=== PATIENT | female | born 1995 ===

== ENCOUNTER → 2022-12-02 08:30 | Outpatient (BNVA) | payer MEDICAID, SELFPAY | PROVIDERS: Visit Provider Physician Assistant ==

== ENCOUNTER → 2022-12-19 10:48 | Outpatient (BNVA) | payer OTHER, SELFPAY | PROVIDERS: Visit Provider Physician Assistant | DX: Z13.89 Encounter for screening for other disorder (principal) ==

== ENCOUNTER 2022-12-19 12:27 | Outpatient (REF) | payer OTHER, SELFPAY ==
[2022-12-21 14:08] LABS: H Pylori Breath Test Negative (Negative)
== END 2022-12-19 12:28 | disposition home or self-care (01) ==
LOC: HO.LNP 12:27
PROVIDERS: Visit Provider Physician Assistant
DX: Z01.818 Encounter for other preprocedural examination (principal); E66.01 Morbid (severe) obesity due to excess calories
CPT/HCPCS: 83013

== ENCOUNTER → 2024-01-06 13:58 | Outpatient (BNVA) | payer OTHER, SELFPAY | PROVIDERS: PCP Family Medicine; Visit Provider Physician Assistant Surgical ==

== ENCOUNTER 2024-03-01 07:59 | Outpatient (AMB) | payer OTHER, SELFPAY ==
--- NOTE | 2024-03-01 10:08 | A.OFFVIS_ITS ---
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: Details: Start time: 10.00am, End time: 10.38am ?I spent 33 minutes speaking with the patient on the phone plus an additional 5 minutes reviewing and updating records for a total of 38 minutes HPI Comments Details: Previous weight loss efforts: intermittent fasting, self diets Wakes up: 7am, Sleeps: 11pm Breakfast: skips Lunch: 11am (sandwich, grilled chicken with salad) Dinner: 5pm (chicken, rice, beans, salad), bowl cheerios Snacks: 9am (granola bar) Exercise: has a stationary bike Fluids: Coffee: none, tea: 3/month, soda: none, juice: none, ETOH: none PFSH Medical History (Updated 03/01/24 @ 10:12 by Pj Bowen MD) Anxiety Depression Back pain Surgical History Hx of section Family History Mother Depression Anxiety Bipolar 1 disorder Father Hypertension Sleep apnea Depression Son ADHD Daughter No problems noted. Social History Alcohol intake: never Patient Tobacco Use Status: Never used Tobacco Telehealth Telehealth Telehealth Platform: Telephone Location of provider rendering services: practice address Location of patient: address on file Patient Identification confirmed using: Name, : Yes Telehealth method: voice only Patient verbally consented to treatment: Yes Patient verbally consented to billing insurance company: Yes Patient informed of any privacy concerns related to visit: Yes Minutes spent on Phone/Video with Pt.: 38 Assessment & Plan Assessment & Plan (1) Morbid obesity: Code(s): E66.01 - Morbid (severe) obesity due to excess calories Category: Medical Plan: 1.? Plan for lap sleeve gastrectomy. If diaphragmatic or ventral hernias are present at time of surgery, these will be repaired laparoscopically as well. Risks and complications include possible conversion to an open procedure, anastomotic leak, bleeding requiring transfusion, small bowel obstruction, , DVT and pulmonary embolism, cardiac, or pulmonary complications, as custodial complications such as anastomotic ulcer, insufficient weight loss and vitamin deficiencies. I emphasized the importance of close follow-up, adherence to instructions and good communication. 2. Nutritional counseling. Start with 2 CELEBRATE REBUILD protein (buy at [facility] [employer] [facility]) shakes (ONE scoop EACH in 8oz low fat milk each) at 8am- 10am and 11am-1pm, 1 protein bar (CELEBRATE protein bars, buy at [facility]'s [employer]) at 2pm-4pm, dinner at 5pm (10 forks of protein and 10 forks of salad/vegetables), a protein bar after dinner at 7pm-9pm AND HALF protein bar at 10pm-11pm. So you do 2 protein shakes, 2.5 protein bars and one meal per day. Meal to include lean meat (beef, fish, pork, turkey, chicken), or albanian yogurt, or egg whites, or beans with a salad with olive oil and fruits (berries, pears, apples, kiwi). Avoid salt, breads, potatoes, rice, pasta, desserts. 3. Each shake would be drunk slowly, like coffee in a period of 2 hours. 4. Cut each bar in 4 pieces and eat each piece in 30min ?to make each bar last 2 hours. 5. I emphasized the importance of measuring accurately the food portion and measure it when serving the food in plate 6. The meal portions include 10 full-size forks of meat and 10 full-size forks of salad. You always eat the meat portion but you can replace up to 5 forks for salad/vegetables with rice, potatoes or pasta, or a fruit ?if you like. The less you do it the better weight loss will be. 7. One full-size fork is what it can be scooped on the fork without falling aside and not what can be bit with the fork. Use regular forks like those you find in a typical restaurant. 8.? Please send me weight measurements as soon as possible and then once a week. Always include your diet and exercise plan. 9. Start walking outside daily, tracking calories with a goal of 300 calories per day, daily. Goal is to burn 2000 calories per week on exercise, which means either 300 calories daily, or 400 calories 5 days per week, or 500 calories 4 days per week, or 650 calories 3 days per week. 10. The best choice would be to purchase a stationary bike, elliptical or treadmill at home that can track calories. Let me know if you do so I can give you an exercise plan. 11.?It is important of avoiding and for at least 18 months postoperatively and has been discussed at the infosession. 12. Goal is to lose at least 1.5-2lbs per week 13. Goal to lose 10% of your weight before surgery, which is about 36lbs. Ultimate weight goal: 327lbs before surgery 14. Please follow the diet plan exactly without any change. If you don't like something about the plan or you feel hungry you need to communicate with me so I can help you revise the plan. You should not change the plan yourself. 15. To be scheduled for EGD due to assess the anatomy of the stomach. The possibility of biopsies was discussed. Patient needs to avoid use of NSAIDs and aspirin for 1 week prior to EGD. Risks of perforation and bleeding was discussed with the patient. This will be an outpatient procedure with IV sedation. Orders: Orders Insulin Today E66.01 - Morbid (severe) obesity due to excess calories Hemoglobin A1c Today E66.01 - Morbid (severe) obesity due to excess calories IRON PROFILE Today E66.01 - Morbid (severe) obesity due to excess calories Vitamin B12 and Folate Today E66.01 - Morbid (severe) obesity due to excess calories C Reactive Protein Today E66.01 - Morbid (severe) obesity due to excess calories Vitamin B1 Today E66.01 - Morbid (severe) obesity due to excess calories Ferritin Today E66.01 - Morbid (severe) obesity due to excess calories XR chest 2V Today E66.01 - Morbid (severe) obesity due to excess calories FL upper GI w air Today E66.01 - Morbid (severe) obesity due to excess calories H Pylori Breath Test Today E66.01 - Morbid (severe) obesity due to excess calories Complete Blood Count Auto Diff Today E66.01 - Morbid (severe) obesity due to excess calories Lipid Panel Today E66.01 - Morbid (severe) obesity due to excess calories Comprehensive Met. Panel Today E66.01 - Morbid (severe) obesity due to excess calories Zinc Today E66.01 - Morbid (severe) obesity due to excess calories Vitamin A Today E66.01 - Morbid (severe) obesity due to excess calories TSH reflex Free T4 Today E66.01 - Morbid (severe) obesity due to excess calories Vitamin D 25-OH Total Today E66.01 - Morbid (severe) obesity due to excess calories US abdomen comp w elastography Today E66.01 - Morbid (severe) obesity due to excess calories ECG 12 lead EKG Today E66.01 - Morbid (severe) obesity due to excess calories Referrals Behavioral Health Referral E66.01 - Morbid (severe) obesity due to excess calories Nutrition/Dietitian Referral E66.01 - Morbid (severe) obesity due to excess calories
[2024-03-01 10:16] VITALS: BMI 55.3
== END 2024-03-01 10:39 | disposition home or self-care (01) ==
LOC: HO.HBS 07:59
PROVIDERS: Visit Provider Surgery
DX: E66.01 Morbid (severe) obesity due to excess calories (principal)
CPT/HCPCS: 99203

== ENCOUNTER → 2024-03-01 07:59 | Outpatient (BNVA) | payer OTHER, SELFPAY | PROVIDERS: Visit Provider Surgery ==

== ENCOUNTER 2024-03-08 08:43 | Outpatient (REF) | payer OTHER, SELFPAY ==
--- NOTE | ~2024-03-08 | XR_ITS ---
EXAMINATION: XR CHEST CLINICAL INFORMATION: Obesity due to excess calories weight management COMPARISON: None available. TECHNIQUE: 2 views of the chest were obtained. FINDINGS: No significant abnormality is noted involving the heart, lungs, mediastinum, bony thorax or soft tissues. XR/XR chest 2V IMPRESSION: Unremarkable examination.
--- NOTE | 2024-03-08 08:51 | ECG_ITS ---
Test Reason : e66.01 Blood Pressure : / mmHG Vent. Rate : 071 BPM Atrial Rate : 071 BPM P-R Int : 166 ms QRS Dur : 080 ms QT Int : 380 ms P-R-T Axes : 004 008 007 degrees QTc Int : 412 ms Sinus rhythm with marked sinus arrhythmia Otherwise normal ECG No previous ECGs available Referred By: Pj Bowen Electronically Signed By:JASEN NICHOLS MD
[2024-03-08 09:01] LABS: MANUAL DIFF FLAG NO
[2024-03-08 09:30] LABS: Basophils Percent Auto 0.5 % (0-2); Eosinophils Absolute Auto 0.1 X10*3/uL (0.0-0.4); Eosinophils Percent Auto 1.5 % (0-4); Hematocrit 41.8 % (37.0-47.0); Imm Gran Abs Auto 0.01 X10*3/uL (0.00-0.03); Imm Gran Pct Auto 0.1 % (0.0-0.4); Lymphocytes Absolute Auto 2.7 X10*3/uL (1.2-4.9); Lymphocytes Percent Auto 35.5 % (20-40); Mean Corpuscular HGB Conc 33.5 g/dl (31.0-35.0); Mean Corpuscular Hemoglobin 30.8 pg (27.0-33.0); Mean Corpuscular Volume 91.9 fL (80.0-98.0); Mean Platelet Volume 9.9 fL (9.4-12.3); Monocytes Absolute Auto 0.7 X10*3/uL (0.1-1.2); Monocytes Percent Auto 9.1 % (2-11); Neutrophils Percent Auto 53.3 % (45-73); Platelet Count 304 X10*3/uL (160-400); Red Blood Count 4.55 X10*6/uL (4.20-5.50); Red Cell Distribution Width 12.1 % (11.0-16.0); White Blood Count 7.5 X10*3/uL (4.8-10.8)
[2024-03-08 09:40] LABS: Estimated Average Glucose 100 mg/dL; Hemoglobin A1c % 5.1 % (<6.0)
[2024-03-08 10:22] LABS: Alanine Aminotransferase 49 U/L (0-31); Albumin Level 4.7 g/dL (3.5-5.0); Alkaline Phosphatase 103 U/L (39-117); Anion Gap 13 (12-20); Aspartate Amino Transferase 25 U/L (5-31); Bilirubin Total 0.5 mg/dL (0.0-1.0); Blood Urea Nitrogen 9 mg/dL (9-16); C Reactive Protein 0.36 mg/dL (< or = 0.50); Calcium 9.9 mg/dL (8.4-10.2); Carbon Dioxide 24 mmol/L (22-29); Chloride 108 mmol/L (96-108); Cholesterol 194 mg/dL (<200); Estimated Glomerular Filt Rate > 60; Glucose Random 95 mg/dL (60-115); HDL Cholesterol 38 mg/dL (>40); Iron 72 mcg/dL (30-160); LDL Cholesterol Calculated 131 mg/dL (<100); Percent Iron Saturation 26 % (15-50); Potassium 4.1 mmol/L (3.3-5.1); Sodium 141 mmol/L (135-145); Total Iron Binding Capacity 275 mcg/dL (228-428); Total Protein 8.1 g/dL (6.5-8.0); Triglycerides 126 mg/dL (<150); Unsaturated Iron Binding 203 ug/dL
[2024-03-08 10:36] LABS: Ferritin 125 ng/mL (10-122); TSH reflex Free T4 0.83 uIU/mL (0.32-4.0); Vitamin D 25-OH Total 21.3 ng/mL (>30)
[2024-03-08 11:24] LABS: Insulin 16 uU/mL (2-29)
[2024-03-08 12:17] LABS: Vitamin B12 733 pg/mL (200-900)
[2024-03-11 06:08] LABS: Zinc 83 mcg/dL (60-130)
[2024-03-11 21:32] LABS: Vitamin A 26 mcg/dL (38-98)
[2024-03-13 10:28] LABS: Vitamin B1 <6 nmol/L (8-30)
== END 2024-03-08 08:44 | disposition home or self-care (01) ==
LOC: HO.XRAY 08:43
PROVIDERS: Visit Provider Surgery
DX: E66.01 Morbid (severe) obesity due to excess calories (principal)
CPT/HCPCS: 36415; 71046; 80053; 80061; 82306; 82607; 82728; 82746; 83036; 83525; 83540; 84425; 84443; 84590; 84630; 85025; 86140; 93005

== ENCOUNTER → 2024-03-08 08:51 | Outpatient (BNV) | payer OTHER, SELFPAY | PROVIDERS: Visit Provider Internal Medicine Cardiovascular Disease | DX: E66.01 Morbid (severe) obesity due to excess calories (principal) | CPT/HCPCS: 93010 ==

== ENCOUNTER 2024-03-11 09:48 | Outpatient (REF) | payer OTHER, SELFPAY ==
--- NOTE | ~2024-03-11 | US_ITS ---
EXAMINATION: US COMPLETE ABDOMEN WITH LIVER ELASTOGRAPHY CLINICAL INFORMATION: Morbid obesity. COMPARISON: None available. TECHNIQUE: Real-time imaging of the abdominal viscera. Noninvasive ultrasound liver fibrosis assessment is performed using Abdoul ElastPQ point quantification shear wave elastography (2D-SWE) with a C5-2 MHz transducer. Multiple elastography samples are obtained. FINDINGS: PANCREAS: Normal. The visualized pancreatic head and body are normal in appearance. The remainder of the pancreas is obscured from visualization by the overlying bowel gas. ABDOMINAL AORTA: The proximal, middle, and distal aortic segments are normal in caliber. INFERIOR VENA CAVA: Visualized portions are normal. LIVER: The liver demonstrates normal size, contour and increased echogenicity. No focal lesion or intrahepatic biliary duct dilatation. The right lobe measures 16.2 cm in length. The left lobe measures 10.9 cm in length. Portal flow is towards the liver (hepatopetal). Shear wave liver elastography median stiffness is 1.27 m/s (reference: normal median stiffness is 1.3 m/s or less). IQR/median stiffness to assess sampling precision is 0.08 (reference: good quality data set is IQR/median stiffness of 0.15 or less). GALLBLADDER: There are shadowing gallstones. The gallbladder is physiologically distended without evidence of polyps, wall thickening or pericholecystic fluid. COMMON BILE DUCT: Not visualized. RIGHT KIDNEY: Normal. No hydronephrosis. No renal calculi or focal parenchymal lesions. The kidney measures 12.0 cm in maximum dimension. LEFT KIDNEY: Normal. No hydronephrosis. No renal calculi or focal parenchymal lesions. The kidney measures 10.2 cm in maximum dimension. SPLEEN: Normal. The spleen measures 9.7 cm in maximum dimension. FREE FLUID: None. US/US abdomen comp w elastography IMPRESSION: 1. There is generalized increase in hepatic echotexture, consistent with fatty infiltration or hepatocellular disease. Please correlate clinically. No focal hepatic mass or intrahepatic biliary dilatation is seen. 2. Liver elastography: Measurements are consistent with a high probability of normal liver stiffness. 3. There is cholelithiasis. 4. The common bile duct is not presently visualized with ultrasound. REFERENCE: Society of Radiologists in Ultrasound Liver Stiffness Thresholds (2020): LIVER STIFFNESS THRESHOLDS: *Liver Stiffness equal or less than 1.3 m/s: High probability of being normal. *Liver Stiffness less than 1.7 m/s: In the absence of other known clinical signs, rules out compensated advanced chronic liver disease. *Liver Stiffness 1.7-2.1 m/s: Suggestive of compensated advanced chronic liver disease but need further test for confirmation. *Liver Stiffness over 2.1 m/s: Rules in compensated advanced chronic liver disease. *Liver Stiffness over 2.4 m/s: Suggestive of clinically significant portal hypertension. QUALITY OF DATA SET: *IQR/Median value equal or less than 0.15 implies a quality data set. *IQR/Median value over 0.15 implies a poor quality data set. SIGNIFICANT CHANGE FROM PRIOR EXAM: Significant change if liver stiffness measurement is 10% or greater from prior exam. OTHER CONSIDERATIONS: The stage of liver fibrosis may be overestimated in the setting of acute hepatitis, liver inflammation, elevated liver function tests, hepatic vascular congestion, obstructive cholestasis, non-fasting state, and infiltrative diseases such as amyloidosis and lymphoma. In some patients with NAFLD, the liver stiffness thresholds for compensated advanced chronic liver disease may be lower. In causes other than viral hepatitis and NAFLD, liver stiffness thresholds are not well established.
== END 2024-03-11 09:49 | disposition home or self-care (01) ==
LOC: HO.US 09:48
PROVIDERS: Visit Provider Surgery
DX: E66.01 Morbid (severe) obesity due to excess calories (principal)
CPT/HCPCS: 76700; 76981

== ENCOUNTER 2024-03-16 09:22 | Outpatient (AMB) | payer OTHER, SELFPAY ==
--- NOTE | 2024-03-16 09:14 | MHC.WMTHER ---
Intake Intake Visit Reasons: (TV) BH Intake Allergies No Known Allergies Allergy (Verified 03/01/24 10:08) [facility] Medical History (Updated 03/01/24 @ 10:12 by Pj Bowen MD) Anxiety Depression Back pain Surgical History Hx of section Family History Mother Depression Anxiety Bipolar 1 disorder Father Hypertension Sleep apnea Depression Son ADHD Daughter No problems noted. Social History Alcohol intake: never Patient Tobacco Use Status: Never used Tobacco Behavioral Health Assessment Weight Management Therapy Therapy Notes Details Patient is looking to have weight loss surgery to help improve her health and quality of life. She reported being in therapy in the past however not currently. Pt denied a history of any problems with drugs or alcohol. She has no history of inpatient psychiatric admissions or serious mental health issues. She did report some depression in recent past due to loosing her mother. Presenting Concerns Referral Source provider Reason for referral weight loss surgery evaluation Precipitating Event obesity Living Situation Current Living Situation Rent At risk of losing current housing? Yes Satisfied with current living situation? No Comments She lives with her two children ages 12, and 11. Food/Weight/Diet Expectations of change weight loss and maintenance History/Relationship with food Pt stated that she was eating late at night, eating fast food everyday, drinking juice and soda daily, eating too much. Also would skip meals all day and then eat from 5 to 10pm. Also poor sleep, she would stay awake until 3am. She did report eating out of boredom and emotions. Pt stated that she now goes for walks with her dog instead of eating. History/Relationship with weight Patient stated that she has been overweight since 6 years old. By 13 she was 300lbs, was able to loose it in her late teen years by being more active and then starting to gain when she had children. History/Relationship with dieting Pt stated that she was recently close to 400lbs and lost weight prior to coming here by cutting out all fast food, liquid calories, and eating smaller portions. Binge Eating Do you frequently eat large amounts of food in short periods of time, not feeling physically hungry? No Do you feel out of control when you eat a large amount of food in a short period of time? No Do you eat large amounts of food rapidly and typically alone? Yes Night Eating Do you wake up at least once during the night to eat? No If you wake up in the night, do you find that it is necessary to eat something in order to fall back asleep? No Do you have little or no appetite in the morning and feel very hungry in the evening, often overeating between dinner and when you go to bed? Yes Social History Family history and relationship Pt was born in [place] and raised in this area. Her mother in 2019. She has one sister. Pt is a single mom with two kids. 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 none reported Education Highest grade completed 9th grade, has plans to get her GED Preferred learning style Auditory, Verbal, Written, Learn by doing and Visual Currently enrolled in educational program? No Interested in further educational program? Yes Educational Interests/Skills cosmetology, tried to work at [employer] but could not stand on her feet for very long due to her weight. Employment Employment Status Unemployed Wants help to find employment? No Meaningful activities walking her dog, spending time with her children Financial Situation Describe current financial situation Occasional struggle Financial assistance? None Service Service? No Mental Health and Addiction Treatment Current/Past substance abuse? No Current/Past addictive behavior concerns? No Medications Is the patient compliant with medications? Yes Does the patient have Guzman Guardian in place? Not applicable Does the patient use complimentary health approaches? No Trauma/Abuse History History of trauma? Yes Assessment & Plan Assessment & Plan (1) Depression: Code(s): F32.A - Depression, unspecified (2) Morbid obesity: Code(s): E66.01 - Morbid (severe) obesity due to excess calories Plan Patient had made great progress, she is motivated and committed. No serious mental health issues were reported. She is cleared for surgery when ready. Telehealth Telehealth Telehealth Platform: Telephone Location of provider rendering services: practice address Location of patient: address on file Patient Identification confirmed using: Name, : Yes Telehealth method: voice only Patient verbally consented to treatment: Yes Patient verbally consented to billing insurance company: Yes Patient informed of any privacy concerns related to visit: Yes Coding Level of Care Code Tele Psy Diag Eval (15810) Diagnoses Depression F32.A Morbid obesity E66.01 Time Spent (min) 40
== END 2024-03-16 10:00 | disposition home or self-care (01) ==
LOC: HO.HBST 09:22
PROVIDERS: Visit Provider Counselor Mental Health
DX: F32.A Depression, unspecified (principal); E66.01 Morbid (severe) obesity due to excess calories
CPT/HCPCS: 90791

== ENCOUNTER → 2024-03-16 09:22 | Outpatient (BNVA) | payer OTHER, SELFPAY | PROVIDERS: Visit Provider Counselor Mental Health ==

== ENCOUNTER → 2024-04-05 08:43 | Outpatient (BNVA) | payer OTHER, SELFPAY | PROVIDERS: Visit Provider Physician Assistant Surgical ==

== ENCOUNTER → 2024-04-14 10:16 | Outpatient (BNV) | payer MEDICAID, SELFPAY | PROVIDERS: Visit Provider Surgery | DX: K44.9 Diaphragmatic hernia without obstruction or gangrene (principal) | CPT/HCPCS: 43239 ==

== ENCOUNTER → 2024-04-14 10:16 | Day surgery (SDC) | payer MEDICAID, SELFPAY ==
--- NOTE | 2024-04-12 14:45 | HO.ANESPROP2 ---
Documented by User: Laura Giordano NP 04/12/24 14:46 HPI - Anesthesia Eval Consult details Narrative: 28yo F for Upper Endoscopy PMFSH Active Problems Active Problems: All Active Problems Vitamin B1 deficiency (Acute) Vitamin A deficiency (Acute) Vitamin D deficiency (Acute) Anxiety (Acute) Depression (Acute) Back pain (Acute) Air hunger (Acute) Daytime somnolence (Acute) Pre-op evaluation (Acute) Morbid obesity (Acute) Past Medical History Medical History Anxiety Depression Back pain Family History Family History Mother Depression Anxiety Bipolar 1 disorder Father Hypertension Sleep apnea Depression Son ADHD Daughter No problems noted. Surgical History Surgical History (Updated 04/14/24 @ 13:26 by Isamar Osorio MD) History of tonsillectomy Hx of section Social History Social History Alcohol intake: never Patient Tobacco Use Status: Never used Tobacco Meds Allergies Allergy/AdvReac Type Severity Reaction Status Date / Time No Known Allergies Allergy Verified 03/01/24 10:08 Home Medications ?Medication ?Instructions ?Recorded ?Confirmed ?Last Taken ?Type omega 1-blc-xrr-fish oil 1,200 mg cap PO 02/25/24 03/01/24 Unknown History (144 mg-216 mg) capsule (Fish Oil) Assessment and Plan Assessment Anesthesia Assessment: Chart Reviewed Documented by User: Isamar Osorio MD 04/14/24 13:28 PMFSH Active Problems Active Problems: All Active Problems Vitamin B1 deficiency (Acute) Vitamin A deficiency (Acute) Vitamin D deficiency (Acute) Anxiety (Acute) Depression (Acute) Back pain (Acute) Air hunger (Acute) Daytime somnolence (Acute) Pre-op evaluation (Acute) Morbid obesity (Acute) BMI 48.8 Denies NALINI Past Medical History Medical History Anxiety Depression Back pain Family History Family History Mother Depression Anxiety Bipolar 1 disorder Father Hypertension Sleep apnea Depression Son ADHD Daughter No problems noted. Family history of problems with anesthesia: No Surgical History Surgical History (Updated 04/14/24 @ 13:26 by Isamar Osorio MD) History of tonsillectomy Hx of section History of Problems with Anesthesia: No Social History Social History Alcohol intake: never Patient Tobacco Use Status: Never used Tobacco Meds Allergies Allergy/AdvReac Type Severity Reaction Status Date / Time No Known Allergies Allergy Verified 03/01/24 10:08 Home Medications ?Medication ?Instructions ?Recorded ?Confirmed ?Last Taken ?Type omega 0-zcy-bpv-fish oil 1,200 mg cap PO 02/25/24 03/01/24 Unknown History (144 mg-216 mg) capsule (Fish Oil) Exam Height,Weight and Vital Signs: Height 5 ft 8 in Weight 145.603 kg Vital Signs Temp Pulse Resp BP Pulse Ox O2 Del Method 04/14/24 12:53 97.8 F 62 16 119/79 96 Room Air Pertinent Lab Results Pertinent Lab Results: Lab Results 04/14/24 Range/Units 10:35 Urine Test NEGATIVE (NEGATIVE) Airway Mallampati Class: II TM Dist: >3cm Neck ROM: Full Loose/Missing/Broken Teeth: No Heart: RRR Lungs: CTAB Assessment and Plan Assessment Anesthesia Assessment: Anesthesia Plan Discussed and Chart Reviewed Final Anesthetic Review Family History of Problems with Anesthesia: No History of Problems with Anesthesia: No NPO: Yes ASA Class: III Final Preanesthetic Review: No Changes in Pt Med Stat, Meds/Allgs Chart Reviewed, Consent Obtained/Reviewed and Anes Risks/Benef Reviewed Patient Risk: Intermediate Procedure Risk: Low Assessment/Block/Sedation in SS: Assess/Block/Sedation-SS Anesthetic Plan Anesthetic Plan: GA and TIVA Disposition: Standard PACU
--- NOTE | ~2024-04-14 | XR_ITS ---
EXAMINATION: XR CHEST CLINICAL INFORMATION: Shortness of breath COMPARISON: 03/08/2024 TECHNIQUE: Frontal view of the chest was obtained. FINDINGS: Lungs clear. Heart and pulmonary vessels normal. No pleural effusion. XR/XR chest 1V IMPRESSION: Unremarkable examination. Electronically signed by: Mitch Echevarria MD 04/14/2024 04:39 PM EDT
[2024-04-14 11:09] LABS: UPreg QC Valid YES; Urine Pregnancy NEGATIVE (NEGATIVE)
[2024-04-14 12:24] VITALS: BMI 48.8
[2024-04-14 12:53] VITALS: BP 119/79; PULSE 62; RESP 16; TEMP 36.6; O2SAT 96
--- NOTE | 2024-04-14 12:53 | PM.OP ---
Brief Operative Note Date of Service: 04/14/24 Pre-op diagnosis: GERD Post-op diagnosis: same (& hiatal hernia) Procedure: PROCEDURE DATE: 04/14/2024 PREOPERATIVE DIAGNOSIS: GERD POSTOPERATIVE DIAGNOSIS: ?Same as above. 1) hiatal hernia PROCEDURE: Kdvobqvr-dxzjoa-sqsmqwycgtec with biopsies Surgeon: ?Markos Bowen M.D.. Ph.D. Commission Broker: None ? Anesthesia: IV sedation Estimated blood loss: ?Minimal FINDINGS AND PROCEDURE: ? OPERATIVE INDICATIONS: ?The patient is a 28 year old female known to me who is interested in bariatric surgery. The patient has GERD. Based on this information I recommended an upper endoscopy to evaluate the patient's symptoms. Risks and complications of the surgery were discussed with the patient in advance particularly the possibility of perforation or bleeding that may require surgical intervention. The patient understood the risks and was in agreement with the plan. ? PROCEDURE: After informed consent was obtained by the patient, the patient was ?transferred to the Operating Room and was placed in the supine position.? After successful induction of IV sedation, a mouth block was inserted and the patient was placed in the left lateral decubitus position. An upper endoscopy was performed next, the oropharynx and esophagus appeared within the normal limits. There was a 4cm hiatal hernia. The z-line was smooth. Two biopsies were obtained from the distal esophagus 2-3 cm proximal to the GE junction and two additional biopsies from the GE junction. The stomach was entered and it appeared to be of normal size. There was no gastritis. There was no stricture or ulcer. A biopsy was obtained from the gastric fundus and the antrum. No significant bleeding was noted from any of the biopsy sites. Retroflexion of the scope confirmed the presence of the hiatal hernia. The scope was then advanced into the duodenum which appeared to be normal as well. At that point the duodenum ?and the stomach were decompressed and the scope was withdrawn from the patient's mouth. The patient extubated and was transferred in stable condition to the Recovery Room for further care. I was present and performed all steps of the procedure. There were no residents to assist with this case. Markos Bowen M.D., Ph.D. Surgeon: Pj Bowen MD Anesthesia: MAC Was an Commission Broker used for this Procedure?: No Estimated blood loss (mL): 0 IV fluids (mL): 400 Urine output (mL): 0 (No Barakat to record output) Pathology: other (1) antrum x1, 2) fundus x1, 3) GE junction x2, 4) distal esophagus x2) Condition: stable Disposition: PACU
[2024-04-14] MEDS: Lactated Ringers 1,000 ML 100 ML IVCONT (12:56)
--- NOTE | 2024-04-14 13:17 | MHC.SHP ---
Pre-Procedural Eval Section A - 24 Hr Update-Section A only Date of Service: 04/14/24 The patient is an INPATIENT: No The patient has been examined within 24 hours of the surgical procedure. The History & Physical has been completed within 30 days and I have reviewed it.: Yes Section B - Complete if H&P > 30 days Chief Complaint: Morbid (severe) obesity due to excess calories Details of Present Illness: GERD Relevant Family History (Specify if Yes): No Relevant Social History: None Present Medications: None Medical History: No relevant PMH History of Previous Operations: No relevant previous surgery Allergies: Allergies Allergy/AdvReac Type Severity Reaction Status Date / Time No Known Allergies Allergy Verified 03/01/24 10:08 Review of Systems Sugical H&P ROS: Negative: Constitution, Cardiovascular, Respiratory, Neurological, Psychiatric, Hem-Onc, Allergic/Immunologic, Gastrointestinal, Genitourinary, Musculoskeletal, Integumentary, Endocrine and Eyes/Ears/Nose/Throat Exam Surgical H&P Exam: Normal: HEENT, Normal: Heart, Normal: Lungs, Normal: Extremities, Normal: Abdomen, Normal: Skin and Normal: Neurological Plan Diagnosis/Plan: Unchanged (EGD to assess etiology of GERD. Risks of bleeding and perforation were discussed with the patient and she is in agreement with the plan.) I have reviewed the history and physical and performed a pertinent physical examination on my patient. No changes have occurred unless specified. Time Spent With Patient Time: Total time managing care of this patient today ____ minutes.
[2024-04-14 14:16] VITALS: BP 101/55; PULSE 74; RESP 18; TEMP 36.3; O2SAT 95
[2024-04-14] MEDS: Albuterol Sulfate (0.083%) 2.5 MG/3 ML VIAL.NEB INHALE (14:33)
[2024-04-14 14:35] VITALS: PULSE 77; RESP 16; O2SAT 95
[2024-04-14 14:58] VITALS: BP 114/69; PULSE 102; RESP 18; TEMP 36.6; O2SAT 97
--- NOTE | 2024-04-14 15:39 | PC.NURSE ---
PATIENT IN DC AREA AND REPORTED MIDLINE CHEST DISCOMFORT WELL RIGHT SIDED JAW PAIN. 02 SATS TAKEN AT 88 %. THIS RN GOT DR. SCHMITT TO COME ASSESS PATIENT. 02 SATS FLUCTUATING BETWEEN 89% AND 95%. DR. SCHMITT PLACING ORDER FOR CXR. DR. SCHMITT STATED LUNGS WITH WHEEZES THROUGHOUT. PATIENT SUDDENLY STARTED HAVING DIFFICULTY BREATHING AND SOME GASPING. PATIENT BROUGHT BACK TO PACU. PATIENT SPIT UP SOME PHLEGM AND THEN FELT A LITTLE BETTER. PATIENT'S CARE TAKEN OVER BY PACU STAFF.
[2024-04-14 16:42] VITALS: BP 135/81; PULSE 114; RESP 17; O2SAT 97
--- NOTE | 2024-04-14 17:04 | PM.EVENT ---
Event Note Date of Service: 04/14/24 Event Note: I was asked to see patient in discharge area c/o breathing difficulty, substernal pain and jaw pain. O2 sats had apparently been dipping to high 80s per nurse. Patient is S/p EGD. Patient had an episode of obstruction during the procedure necessitating jaw thrust and manual ventilation. On arrival in PACU, vital signs were stable but patient was c/o breathing difficulty. Auscultation did not reveal much except for ?mild wheezing (transmitted sounds+). Albuterol treatment was administered and rest of PACU stay was uneventful. Patient was transferred to discharge area and it was while receiving discharge instructions that she again started to c/o substernal chest pain and breathing difficulty. Examinaton again only revealed ? mild wheezing. I explained to patient that she had needed some maneuvers to help with her breathing which could explain her jaw discomfort. Sats were 92-99%. I gave her the option of going home and returning to ER if symptoms worsened or being seen in ER before discharge. She elected to do the latter. Before this could be arranged, she was rushed into the PACU area with apparent worsening of her breathing. Breathing was not labored- more exaggerated. Patient was coughing and attempting to throw up. Placed on monitor. VSS except for some tachycardia. Stat CXR was obtained- Was unremarkable. Patient still c/o chest pain. Decision made to send patient to ER for evaluation. Dr Bowen informed. Time Spent With Patient Time: Total time managing care of this patient today ____ minutes.
--- NOTE | 2024-04-14 17:11 | PC.NURSE ---
RECIEVED PT BACK FROM MI AREA. HAVING SOB AND DIFF BREATHING. FREQ COUGHING. COUGH A LARGE AMT OF MUCOUS WITH SOME DRY HEAVING. PLACED PT ON MONITOR O2SAT 94% ON RA. ANESTHESIA AT BEDSIDE. O2 APPLIED AT 2L. CXR DONE. IV ATTEMPTED X2 WITH VEIN FINDER. AWAITING ANESTHESIA TO ATTEMPT. PT PRES STABLE VSS 135/82 102 18 98% WITH O2 ON. FAMILY NOTIFIED OF PTS. STATUS.
== END | disposition home or self-care (01) ==
PROVIDERS: Nurse Practitioner; Visit Provider Surgery
PROC: 0DJ08ZZ Inspection of Upper Intestinal Tract, Via Natural or Artificial Opening Endoscopic (ICD-10-PCS; CPT 43235; principal; 2024-04-14 14:20)
DX: K21.9 Gastro-esophageal reflux disease without esophagitis (principal); K44.9 Diaphragmatic hernia without obstruction or gangrene; E66.01 Morbid (severe) obesity due to excess calories; Z68.43 Body mass index [BMI] 50.0-59.9, adult; J95.89 Other postprocedural complications and disorders of respiratory system, not elsewhere classified; R06.02 Shortness of breath; R09.02 Hypoxemia; R07.2 Precordial pain; R68.84 Jaw pain; M54.9 Dorsalgia, unspecified; F32.A Depression, unspecified; F41.9 Anxiety disorder, unspecified; Z79.899 Other long term (current) drug therapy
CPT/HCPCS: 43239; 71045; 81025; 88305; 88313; 88342; 99499

== ENCOUNTER 2024-04-14 17:27 | Emergency (ER) | payer MEDICAID, SELFPAY ==
--- NOTE | 2024-04-14 | ECG_ITS ---
Test Reason : CHEST PAIN Blood Pressure : / mmHG Vent. Rate : 107 BPM Atrial Rate : 107 BPM P-R Int : 176 ms QRS Dur : 082 ms QT Int : 324 ms P-R-T Axes : 050 013 027 degrees QTc Int : 432 ms Sinus tachycardia Otherwise normal ECG When compared with ECG of 08-MAR-2024 08:58, Vent. rate has increased BY 36 BPM T wave amplitude has decreased in Lateral leads Referred By: Michelle Henderson Electronically Signed By:CUCO VAZQUEZ
[2024-04-14 17:36] VITALS: BP 98/47; PULSE 105; RESP 19; TEMP 37.9; O2SAT 95; BMI 49.0
--- NOTE | 2024-04-14 17:45 | PC.NURSE ---
patient arrives as a transfer from the PACU, patient was seen today for an upper endoscopy, while in post op, patient had a couple of moments of her oxygen desaturating, per PACU nurse, patient would go down to 88% and then back up to the mid 90s, patient was able to maintain oxygen saturations in the 90s and was then moved to the discharge section. shortly after, the pacu nurse stated that the patient would begin to desaturate again to 85% and started complaining of chest pain and all over body pain, patient is slightly tachycardic in the 110s. currently 103 on the monitor, patient is alert and oriented however drowsy. states that she has never received anesthesia before, she states her whole body hurts, she cant get comfortable. patient laying on her side on the bed. per PACU nurse, patient had a chest xray after her procedure and it was negative. patient remains on engine monitor at this time. awaiting MD eaton
--- NOTE | 2024-04-14 18:07 | ED.GENADULT ---
HPI - General Adult General Chief complaint: General Medical Stated complaint: sob Time Seen by Provider: 04/14/24 17:47 Source: other ( PACU) Mode of arrival: wheelchair Limitations: other ( confused, status post anesthesia) History of Present Illness ED Provider: Dr. Michelle Henderson HPI narrative: we received a phone call from the PACU, patient had an upper endoscopy done today. Seems that patient had multiple episodes of oxygen desaturations. Eventually when patient woke up from anesthesia, patient started complaining of sore throat, chest pain, shortness of breath, whole body aches. Patient's vitals were stabilized in the PACU and brought to the emergency room. Patient complaining of pain all over. Related Data Home Medications ?Medication ?Instructions ?Recorded ?Confirmed omega 8-ujc-men-fish oil 1,200 mg cap PO 02/25/24 03/01/24 (144 mg-216 mg) capsule (Fish Oil) Previous Rx's ?Medication ?Instructions ?Recorded cholecalciferol (vitamin D3) 125 125 mcg PO DAILY #90 caps 04/11/24 mcg (5,000 unit) capsule thiamine HCl (vitamin B1) 100 mg 100 mg PO DAILY #90 tabs 04/11/24 tablet vitamin A palmitate 3,000 mcg 10,000 unit PO DAILY #90 caps 04/11/24 (10,000 unit) capsule Allergies Allergy/AdvReac Type Severity Reaction Status Date / Time No Known Allergies Allergy Verified 04/14/24 17:38 Review of Systems Review of Systems: Constitutional : No Weight loss, No Fever, No Chills, No Night Sweats, Complaining of pain all over ENT/Mouth : No Hearing loss, No Ear Pain, No Nasal Congestion, No Sinus Pain, No Hoarseness, No sore throat, No Rhinorrhea, No Swallowing Difficulty Eyes: No Eye Pain, No Swelling, No Redness, No Foreign Body, No Discharge, No Vision Changes Cardiovascular : No Chest Pain, No SOB, No Dyspnea on Exertion, No Orthopnea, No Edema, No Palpitations Respiratory : No Cough, No Sputum, No Wheezing, No Smoke Exposure, No Dyspnea, per PACU, multiple episodes of oxygen desaturation Gastrointestinal : No Nausea, No Vomiting, No Diarrhea, No Constipation, No abdominal Pain, No Hematochezia, No Melena Genitourinary : no irregular bleeding, No Dysuria, No Urinary Frequency, No Hematuria, No Urinary Incontinence, No Urgency, No Flank Pain, No Urinary Flow Changes, No Hesitancy Musculoskeletal : No joint pain, No Myalgias, No Joint Swelling Skin : No Skin Lesions, No rash Neuro : No Weakness, No Numbness, No Paresthesias, No Loss of Consciousness, No Dizziness, No Headache Psych : No Anxiety/Panic, No Depression, No SI/HI/AH/VH, No Social Issues, Heme/Lymph: No Bruising, No Bleeding,No Lymphadenopathy Endocrine : No Polyuria, No Polydipsia, No Temperature Intolerance [facility] Past Medical History Medical History Anxiety Depression Back pain Surgical History (Updated 04/14/24 @ 13:26 by Isamar Osorio MD) History of tonsillectomy Hx of section Family History Family History Mother Depression Anxiety Bipolar 1 disorder Father Hypertension Sleep apnea Depression Son ADHD Daughter No problems noted. Social History Social History Alcohol intake: never Patient Tobacco Use Status: Never used Tobacco Smoked in Last 30 Days: Yes Use of substances other than those prescribed or required for medical reasons: No Advance Directives: No Advance Directives Information Provided: Yes Do you have a plan to hurt others: No Plan Patient : No Physical Exam ED Vital Signs: Vital Signs - 24 hr 04/14/24 17:36 Temperature 100.2 F Pulse Rate 105 H Respiratory Rate 19 Blood Pressure 98/47 L Pulse Oximetry 95 Oxygen Delivery Method Nasal Cannula BMI result Body Mass Index 49.0 Const Other: Appearance: Alert. Oriented X3. No acute distress. Eyes: Pupils equal, round and reactive to light. ENT: Pharynx normal. Neck: Normal inspection. Neck supple. No lymph nodes noted. No crepitus CVS: Normal heart rate and rhythm. Pulses normal. Normal S1 and S2 Respiratory: No respiratory distress. Breath sounds normal. No Wheezing. No rales Abdomen: Soft and nontender. No rigidity. No distention. Skin: Skin warm and dry. Normal skin color. Normal skin turgor. Extremities: No lower extremity edema. No Lacerations. No Rash Neuro: Oriented X 3. No motor deficit. No sensory deficit. Moving all extremities. No slurred speech. CN 2 through 12 grossly intact Psych: calm, cooperative, very anxious Course Course Course Narrative: - all of patient's labs pending Medical Decision Making Medical Decision Making MDM Narrative: - x-ray was done earlier today in the PACU: No obvious abnormality. - patient's vitals: Blood pressure 98/47, heart rate 105, temperature oral 100.2. in triage note, it says that patient is on a nasal cannula saturating 95%. However, the oxygen is off, patient on room air 19:11, I was informed by the patient's nurse that the patient stated that she was feeling well, declined labs and walked out of the ED Differential Diagnosis Differential Diagnoses: The differential diagnosis associated with the presentation includes ( coming out of anesthesia, aspiration, anxiety, ACS) Admission/Observation Consideration of admission/observation: Escalation of care including admission/observation considered ( given patient's eventful recovery from anesthesia, observation/ admission was considered) Consult Healthcare Provider Management of the patient was discussed with: Quilting Machine Operator ( anesthesia) Discharge Plan Discharge Clinical Impression: Oxygen desaturation, Chest pain, Acute dyspnea Patient Disposition: Left W/O Completing Treatment Prescriptions: No Action cholecalciferol (vitamin D3) 125 mcg (5,000 unit) capsule 125 mcg PO DAILY Qty: 90 0RF vitamin A palmitate 3,000 mcg (10,000 unit) capsule 10,000 unit PO DAILY Qty: 90 0RF thiamine HCl (vitamin B1) 100 mg tablet 100 mg PO DAILY Qty: 90 0RF omega 2-ulb-zmv-fish oil [Fish Oil] 1,200 (144-216) mg capsule PO Interventions: ED Discharge Assessment Last Done: 04/14/24 19:16 Discharge Date/Time: 04/14/24 19:17
--- NOTE | 2024-04-14 18:45 | PC.NURSE ---
Addendum entered by Cecy Sawyer RN 04/14/24 19:12: patient requesting to leave at this time, educated patient that she was being monitored and we wanted to make sure she was okay after her procedure. patient agreeable to staying in bed at this time Original Note: patient ambulatory with steady gait out of room, noted to have put her shoes back on and taken herself off monitor
--- NOTE | 2024-04-14 19:13 | PC.NURSE ---
tech went into room to draw labs from patient, patient noted to have left before completing treatment. MD made aware that patient left, no IV in place.
[2024-04-14 19:16] VITALS: BP 0/0; PULSE 0; RESP 0; TEMP -17.7; TEMP 0; O2SAT 0
== END 2024-04-14 19:17 | disposition left against medical advice (07) ==
PROVIDERS: Emergency Provider Emergency Medicine
DX: R79.81 Abnormal blood-gas level (principal); J02.9 Acute pharyngitis, unspecified; R07.9 Chest pain, unspecified; R06.02 Shortness of breath; R06.00 Dyspnea, unspecified; Z09 Encounter for follow-up examination after completed treatment for conditions other than malignant neoplasm; Z98.890 Other specified postprocedural states
CPT/HCPCS: 93005; 99283; 99284

== ENCOUNTER → 2024-04-16 09:06 | Outpatient (BNVA) | payer MEDICAID, SELFPAY | PROVIDERS: Visit Provider Surgery ==

== ENCOUNTER 2024-05-03 08:04 | Outpatient (AMB) | payer MEDICAID, SELFPAY ==
--- NOTE | 2024-05-03 11:27 | A.OFFVIS_ITS ---
VS Expanded 05/03/24 11:38 Height 5 ft 8 in Weight 313 lb 4 oz BMI 47.6 Body Fat % 63.5 Body Fat Mass 199 Fat Free Mass 114.4 Visceral Fat Rating 29 Body Water % 25 Body Water Mass 78.3 Basal Metabolic Rate/Score 1,496 Intake Visit Reasons: TV Pre Op LSG 05/12/24 Allergies No Known Allergies Allergy (Verified 05/03/24 11:27) Medication List - Last Reconciled 05/03/24 by Pj Bowen MD cholecalciferol (vitamin D3) 125 mcg PO DAILY omega 8-brs-zoh-fish oil 1,200 (144-216) mg (Fish Oil) 1 cap PO DAILY ondansetron 4 mg PO Q12H pantoprazole 40 mg PO DAILY pantoprazole 40 mg PO DAILY polyethylene glycol 3350 17 grams PO DAILY sucralfate 10 mL PO BID thiamine HCl (vitamin B1) 100 mg PO DAILY vitamin A palmitate 10,000 units PO DAILY HPI HPI TV Pre Op LSG 05/12/24: Details: Start time: 11.15am, End time: 11.47am ?I spent 27 minutes speaking with the patient on the phone plus an additional 5 minutes reviewing and updating records for a total of 32 minutes HPI Comments Details: Overall weight loss: 50.4lbs, or 13.85% TBWL Is doing 5 Celebrate Rebuild protein shakes per day Has stopped food and bars PFSH Medical History (Updated 04/28/24 @ 20:03 by Pj Bowen MD) Anxiety Depression Back pain Surgical History (Updated 05/03/24 @ 11:16 by Carmelina Ackerman RN) History of esophagogastroduodenoscopy (EGD) History of tonsillectomy Hx of section Family History Mother Depression Anxiety Bipolar 1 disorder Father Hypertension Sleep apnea Depression Son ADHD Daughter No problems noted. Social History Alcohol intake: never Patient Tobacco Use Status: Never used Tobacco Telehealth Telehealth Telehealth Platform: Telephone Location of provider rendering services: practice address Location of patient: address on file Patient Identification confirmed using: Name, : Yes Telehealth method: voice only Patient verbally consented to treatment: Yes Patient verbally consented to billing insurance company: Yes Patient informed of any privacy concerns related to visit: Yes Minutes spent on Phone/Video with Pt.: 32 Assessment & Plan Assessment & Plan (1) Morbid obesity: Code(s): E66.01 - Morbid (severe) obesity due to excess calories Category: Medical Plan: 1. Plan for lap sleeve gastrectomy including upper GI endoscopy. All tests has been completed and reviewed and the patient is cleared for the surgery. ?If diaphragmatic or ventral hernias are present at time of surgery, these will be repaired laparoscopically as well. Risks and complications were discussed in detail including possible conversion to an open procedure, anastomotic leak, bleeding requiring transfusion, small bowel obstruction, , DVT and pulmonary embolism, cardiac, or pulmonary complications, as termite control technician complications such as anastomotic ulcer, insufficient weight loss and vitamin deficiencies. I emphasized the importance of close follow-up, adherence to instructions and good communication. So far she has proven to be an excellent communicator and very compliant with all our directions accomplishing a great weight loss. I believe that she is an excellent candidate and she is ready. 2. Preop prescriptions were provided and explained the purpose of each one. Need to be purchased preop. Start Pantoprazole now as you get it from the pharmacy, 1 pill per day. Sucralfate and Zofran are for after surgery as needed. 3. Bowel prep: please do 7 packets ?of Miralax mixing each one with a an 8oz glass of water, crystal light, gatorade zero, or propel ?on two days before surgery date and the same amount the day before surgery. The Miralax you begin with one packet at a time in 8oz water or crystal light, gatorade zero, or propel ?as early in the day as you can and you do them back to back until you finish them. Continue the protein shakes during ?the bowel prep. 4. Needs to purchase 1oz medicine cups . 5. Needs to purchase Children's liquid Tylenol for postop pain control. 6. Avoid aspirin, motrin, Advil, Aleve, Ibuprofen, Naproxyn. Tylenol is OK. 7. She needs to purchase the Celebrate 4:1 protein shakes from the hospital's gift shop. 8. Will do basic preop blood work-up any day between Friday05/03/24 and Friday05/07/24 fasting for 12 hours and is scheduled to see the Anesthesiologist prior to the day of surgery. 9. Importance of adherence to postop folllow-up and recommendations was underscored and she understands that. 10. Continue to avoid food and bars and continue with 5 Celebrate Rebuild protein shakes (TWO scoops in 8oz almond milk) at 8am-10am, 11am-1pm, 2pm-4pm, 5pm-7pm and at 8pm-10pm 11. No soups, broths or V8 12. The patient's?medical?history has been reviewed and they are considered low risk for post op DVT and therefore DVT prophylaxis is not considered necessary. Travel after surgery was reviewed. The patient has not disclosed any travel plans during the first 30 days after surgery and they have been advised that within the first 30 days after surgery any bus, plane, train or car travel over 2 hours in duration is contraindicated due to the possibility of developing blood clots from immobility. Any travel, needs to include periods of ambulation of 10 minutes in duration every 2 hours.? Patient was instructed to discuss any plans for travel during this period with their bariatric surgeon.? 13. Please take at the day of surgery the following medications: NONE 14. Stop any control pills and don't use them for one month after surgery 15. Absolutely no smoking or vaping, or marijuana until the surgery and for at least the first 4 weeks. Only nicotine patches are allowed. 16. Send me weight measurements on Saturdays and then the last on the day of surgery before you go to the hospital. 17. Avoid any steroids by mouth for any reason. Let me know if someone prescribes them to you 18. These instructions supersede anything else you read in the handbook, anything you watched in videos or classes or you were told by any other provider. If there is any conflict, you follow the above instructions and nothing else. Orders: Orders Comprehensive Met. Panel Today E66.01 - Morbid (severe) obesity due to excess calories Prothrombin Time INR Today E66.01 - Morbid (severe) obesity due to excess calories Hemoglobin A1c Today E66.01 - Morbid (severe) obesity due to excess calories Partial Thromboplastin Time Today E66.01 - Morbid (severe) obesity due to excess calories Complete Blood Count Auto Diff Today E66.01 - Morbid (severe) obesity due to excess calories Insulin Today E66.01 - Morbid (severe) obesity due to excess calories TSH reflex Free T4 Today E66.01 - Morbid (severe) obesity due to excess calories Type and Screen Today E66.01 - Morbid (severe) obesity due to excess calories Lipid Panel Today E66.01 - Morbid (severe) obesity due to excess calories C Reactive Protein Today E66.01 - Morbid (severe) obesity due to excess calories Medications: New ondansetron Only take one every 12 hours as needed if you have nausea 4 mg PO Q12H 20 tabs 0RF nausea and vomiting R11.0 - Nausea pantoprazole 40 mg PO DAILY 90 tabs 0RF K20.90 - Esophagitis, unspecified without bleeding sucralfate 10 mL PO BID 600 mL 2RF K20.90 - Esophagitis, unspecified without bleeding polyethylene glycol 3350 Mix each measuring cup with 8oz of water, Crystal light, or Gatorade zero, or Propel and do 7 measuring cups two days before surgery date and another 7 measuring cups one day before surgery date 17 grams PO DAILY 238 grams 0RF
[2024-05-03 11:38] VITALS: BMI 47.6
== END 2024-05-03 11:48 | disposition home or self-care (01) ==
LOC: HO.HBS 08:04
PROVIDERS: Visit Provider Surgery
DX: E66.01 Morbid (severe) obesity due to excess calories (principal)
CPT/HCPCS: 99214

== ENCOUNTER → 2024-05-03 08:04 | Outpatient (BNVA) | payer MEDICAID, SELFPAY | PROVIDERS: Visit Provider Surgery ==

== ENCOUNTER 2024-05-10 09:19 | Outpatient (REF) | payer MEDICAID, SELFPAY ==
--- NOTE | ~2024-05-10 | FL_ITS ---
EXAMINATION: XR FLUOROSCOPY UPPER GI WITH AIR CLINICAL INFORMATION: Preop evaluation prior to bariatric surgery COMPARISON: None TECHNIQUE: Fluoroscopic air contrast upper GI examination was performed utilizing standard techniques with thin and thick barium and effervescent granules. Numerous spot images were obtained. FINDINGS: Dual and single contrast images of the esophagus demonstrate normal caliber, contour, and mucosal pattern. No evidence of stricture, mass, or ulcerations identified. Esophageal peristalsis was normal. A small type 1 hiatal hernia is present. Gastroesophageal reflux was observed up to the mid esophagus. Dual contrast and single contrast images of the stomach demonstrated a normal contour. Normal mucosal markings. No masses or ulcerations are seen. Contrast freely passed into the gastric antrum and duodenal bulb without delay. Single and air-contrast images of the duodenal bulb demonstrate no abnormality. The duodenal sweep has a normal appearance, course, and mucosal fold appearance. No malrotation. The imaged proximal jejunum has a normal fold pattern and caliber. FLUOROSCOPY TIME: 3 minutes 47 seconds Number of Spot Images: 10 Number of Cine: 13 DOSE AREA PRODUCT: 3527 uGy-m2 (microgray-meter squared) FL/FL upper GI w air IMPRESSION: 1. Very small type I hiatal hernia . 2. Mild gastroesophageal reflux. 3. Remainder of the exam is normal. This procedure was performed by Oliver White PA-C, and supervised by Dr. Troncoso Electronically signed by: Igor Troncoso MD 05/10/2024 04:38 PM EDT
== END 2024-05-10 09:20 | disposition home or self-care (01) ==
LOC: HO.XRAY 09:19
PROVIDERS: Visit Provider Surgery
DX: E66.01 Morbid (severe) obesity due to excess calories (principal)
CPT/HCPCS: 74246

== ENCOUNTER → 2024-05-10 09:20 | Outpatient (BNV) | payer MEDICAID, SELFPAY | PROVIDERS: Visit Provider Radiology Diagnostic Radiology | DX: Z01.818 Encounter for other preprocedural examination (principal); E66.01 Morbid (severe) obesity due to excess calories | CPT/HCPCS: 74246 ==

== ENCOUNTER → 2024-05-12 10:01 | Outpatient (BNVA) | payer MEDICAID, SELFPAY | PROVIDERS: Visit Provider Surgery ==

== ENCOUNTER → 2024-05-14 08:11 | Outpatient (REF) | payer MEDICAID, SELFPAY ==
--- NOTE | 2024-05-14 08:13 | CA_ITS ---
Acquisition Time: 2024-05-14 08:21:13 Total Exercise Time: 00:05:05 Test Indications: ABN EKG Medications: SEE H Protocol: MORALES Max HR: 184 BPM 96% of Pred: 190 BPM Max BP: 152/090 mmHG Max Work Load: 7.0 METS Exercise stress test exercise 5 min 5 sec of Morales protocol achieving 96% MPHR, with mild to moderate SOB, no chest discomforts, with normotensive response to exercise, with brisk HR response, without EKG changes. Shortness of breath resolved with rest. Test reviewed with Dr. Sena Referred By: Pj Bowen Overread By: Dilia Troncoso
== END ==
LOC: HO.CARD 08:11
PROVIDERS: Visit Provider Surgery
DX: R94.31 Abnormal electrocardiogram [ECG] [EKG] (principal)
CPT/HCPCS: 93017

== ENCOUNTER → 2024-05-14 08:13 | Outpatient (BNV) | payer MEDICAID, SELFPAY | PROVIDERS: Visit Provider Nurse Practitioner | DX: R06.02 Shortness of breath (principal) | CPT/HCPCS: 93016; 93018 ==

== ENCOUNTER 2024-05-19 08:32 | Inpatient (IN) | payer MEDICAID, SELFPAY ==
[2024-05-12 10:00] LABS: MANUAL DIFF FLAG NO
[2024-05-12 11:08] LABS: Basophils Absolute Auto 0.1 X10*3/uL (0.0-0.2); Basophils Percent Auto 0.7 % (0-2); Eosinophils Absolute Auto 0.2 X10*3/uL (0.0-0.4); Eosinophils Percent Auto 2.6 % (0-4); Hematocrit 37.4 % (37.0-47.0); Hemoglobin 12.7 g/dl (12.0-16.0); Imm Gran Abs Auto 0.02 X10*3/uL (0.00-0.03); Imm Gran Pct Auto 0.3 % (0.0-0.4); Lymphocytes Absolute Auto 2.6 X10*3/uL (1.2-4.9); Lymphocytes Percent Auto 35.6 % (20-40); Mean Corpuscular Hemoglobin 30.9 pg (27.0-33.0); Mean Platelet Volume 9.6 fL (9.4-12.3); Monocytes Absolute Auto 0.6 X10*3/uL (0.1-1.2); Monocytes Percent Auto 8.2 % (2-11); Neutrophils Absolute Auto 3.8 x10*3/uL (2.0-8.3); Neutrophils Percent Auto 52.6 % (45-73); Platelet Count 307 X10*3/uL (160-400); Red Blood Count 4.11 X10*6/uL (4.20-5.50); White Blood Count 7.3 X10*3/uL (4.8-10.8)
[2024-05-12 11:17] LABS: INTERNATIONAL NORM RATIO 1.1 (0.9-1.1); Prothrombin Time 12.9 SEC (11.1-13.3)
[2024-05-12 11:20] LABS: Partial Thromboplastin Time 33.9 SEC (26.0-36.8)
[2024-05-12 11:25] LABS: Estimated Average Glucose 100 mg/dL; Hemoglobin A1c % 5.1 % (<6.0)
[2024-05-12 12:32] LABS: Alanine Aminotransferase 26 U/L (0-31); Albumin Level 4.3 g/dL (3.5-5.0); Alkaline Phosphatase 95 U/L (39-117); Anion Gap 12 (12-20); Aspartate Amino Transferase 16 U/L (5-31); Bilirubin Total 0.3 mg/dL (0.0-1.0); Blood Urea Nitrogen 11 mg/dL (9-16); C Reactive Protein 0.76 mg/dL (< or = 0.50); Calcium 9.9 mg/dL (8.4-10.2); Carbon Dioxide 23 mmol/L (22-29); Chloride 108 mmol/L (96-108); Cholesterol 189 mg/dL (<200); Estimated Glomerular Filt Rate > 60; Glucose Random 85 mg/dL (60-115); HDL Cholesterol 38 mg/dL (>40); LDL Cholesterol Calculated 133 mg/dL (<100); Sodium 139 mmol/L (135-145); Total Protein 7.8 g/dL (6.5-8.0); Triglycerides 90 mg/dL (<150)
[2024-05-12 12:51] LABS: Insulin 14 uU/mL (2-29); TSH reflex Free T4 0.99 uIU/mL (0.32-4.0)
[2024-05-17 10:35] VITALS: BMI 46.8
--- NOTE | 2024-05-17 12:19 | P.CONAN_ITS ---
Documented by User: Laura Giordano NP 05/17/24 12:23 HPI - Anesthesia Eval Consult details Narrative: 28yo F for Gastrectomy Sleeve- EGD, possible diaphragmatic hernia, possible ventral hernia, possible open s/p EGD 03/2024 - post op SOB and substernal pain. See anesthesia event note 04/14/24. Pt to ER with unremarkable exam and D/C home. Per PAT phone eval, no recurrence of symptoms and outpt stress test ordered by bariatrics nml. [facility] Active Problems Active Problems: All Active Problems Abnormal EKG (Acute) Esophagitis determined by biopsy (Acute) Vitamin B1 deficiency (Acute) Vitamin A deficiency (Acute) Vitamin D deficiency (Acute) Air hunger (Acute) Daytime somnolence (Acute) Pre-op evaluation (Acute) Morbid obesity (Acute) Anxiety (Acute) Depression (Acute) Back pain (Acute) Past Medical History Medical History Anxiety Depression Back pain Family History Family History Mother Depression Anxiety Bipolar 1 disorder Father Hypertension Sleep apnea Depression Son ADHD Daughter No problems noted. Family history of problems with anesthesia: No Surgical History Surgical History History of esophagogastroduodenoscopy (EGD) History of tonsillectomy Hx of section History of Problems with Anesthesia: No Social History Social History Household Members Other:: minor children Are you a primary health care assistant to a significant other at home: Yes Do you presently have visiting nurse or other home services: No Alcohol intake: never Patient Tobacco Use Status: Former Tobacco user Tobacco use type: Cigarette Cigarettes Per Day: 4 Years Smoked: 8 Have you been hit, kicked, punched, or otherwise hurt by someone within the past year? If so, by whom?: No Spiritual Healthcare Practices: none Adventism Healthcare Practices: none Cultural Healthcare Practices: none Are you DNR?: No Advance Directives: No Advance Directives Information Provided: No Advance Directives on File: No Recently lost weight without trying: No Eating poorly because of decreased appetite: No Nutrition Risks: No Nutritional Risk FDLMP: 04/03/24 : No Poor oral hygiene: No Meds Allergies Allergy/AdvReac Type Severity Reaction Status Date / Time No Known Allergies Allergy Verified 05/19/24 08:40 Home Medications ?Medication ?Instructions ?Recorded ?Confirmed ?Last Taken ?Type omega 6-paz-kqj-fish oil 1,200 mg 1 cap PO DAILY 02/25/24 05/19/24 05/17/24 History (144 mg-216 mg) capsule (Fish Oil) Exam Height,Weight and Vital Signs: Height 5 ft 8 in Weight 139.706 kg Pertinent Lab Results Pertinent Lab Results: Laboratory Tests 05/12/24 05/12/24 09:50 09:58 WBC 7.3 RBC 4.11 L Hgb 12.7 Hct 37.4 MCV 91.0 MCH 30.9 MCHC 34.0 RDW 12.0 Plt Count 307 MPV 9.6 Immature Gran % (Auto) 0.3 Neut % (Auto) 52.6 Lymph % (Auto) 35.6 [place] % (Auto) 8.2 Eos % (Auto) 2.6 Baso % (Auto) 0.7 Lymph # (Auto) 2.6 [place] # (Auto) 0.6 Eos # (Auto) 0.2 Baso # (Auto) 0.1 Abs Immat Gran (auto) 0.02 Absolute Neuts (auto) 3.8 Absolute Nucleated RBC 0.000 Nucleated RBC % (auto) 0.0 PT 12.9 INR 1.1 APTT 33.9 Sodium 139 Potassium 4.0 Chloride 108 Carbon Dioxide 23 Anion Gap 12 BUN 11 Creatinine 0.77 Estim Creat Clear Calc TNP Estimated GFR > 60 Random Glucose 85 Estimat Average Glucose 100 Hemoglobin A1c % 5.1 Insulin Level 14 Calcium 9.9 Total Bilirubin 0.3 AST 16 ALT 26 Alkaline Phosphatase 95 C-Reactive Protein 0.76 H Total Protein 7.8 Albumin 4.3 Triglycerides 90 Cholesterol 189 LDL Cholesterol, Calc 133 H HDL Cholesterol 38 L TSH 0.99 Blood Type O Positive Antibody Screen NEGATIVE Narrative Narrative: EKG 03/2024 Vent. Rate : 107 BPM Atrial Rate : 107 BPM P-R Int : 176 ms QRS Dur : 082 ms QT Int : 324 ms P-R-T Axes : 050 013 027 degrees QTc Int : 432 ms Sinus tachycardia Otherwise normal ECG When compared with ECG of 08-MAR-2024 08:58, Vent. rate has increased BY 36 BPM T wave amplitude has decreased in Lateral leads Exercise Stress 04/2024 Protocol: MORALES Max HR: 184 BPM 96% of Pred: 190 BPM Max BP: 152/090 mmHG Max Work Load: 7.0 METS Exercise stress test exercise 5 min 5 sec of Morales protocol achieving 96% MPHR, with mild to moderate SOB, no chest discomforts, with normotensive response to exercise, with brisk HR response, without EKG changes. Shortness of breath resolved with rest. Test reviewed with Dr. Sena Assessment and Plan Assessment Anesthesia Assessment: Chart Reviewed Final Anesthetic Review Family History of Problems with Anesthesia: No History of Problems with Anesthesia: No Documented by User: Nani Villavicencio MD 05/19/24 09:39 [facility] Past Medical History Medical History Anxiety Depression Back pain Family History Family History Mother Depression Anxiety Bipolar 1 disorder Father Hypertension Sleep apnea Depression Son ADHD Daughter No problems noted. Surgical History Surgical History History of esophagogastroduodenoscopy (EGD) History of tonsillectomy Hx of section Social History Social History Household Members Other:: minor children Are you a primary health care assistant to a significant other at home: Yes Do you presently have visiting nurse or other home services: No Alcohol intake: never Patient Tobacco Use Status: Former Tobacco user Tobacco use type: Cigarette Cigarettes Per Day: 4 Years Smoked: 8 Have you been hit, kicked, punched, or otherwise hurt by someone within the past year? If so, by whom?: No Spiritual Healthcare Practices: none Adventism Healthcare Practices: none Cultural Healthcare Practices: none Are you DNR?: No Advance Directives: No Advance Directives Information Provided: No Advance Directives on File: No Recently lost weight without trying: No Eating poorly because of decreased appetite: No Nutrition Risks: No Nutritional Risk FDLMP: 04/03/24 : No Poor oral hygiene: No Meds Allergies Allergy/AdvReac Type Severity Reaction Status Date / Time No Known Allergies Allergy Verified 05/19/24 08:40 Home Medications ?Medication ?Instructions ?Recorded ?Confirmed ?Last Taken ?Type omega 9-big-cdi-fish oil 1,200 mg 1 cap PO DAILY 02/25/24 05/19/24 05/17/24 History (144 mg-216 mg) capsule (Fish Oil) Exam Airway Mallampati Class: III TM Dist: >3cm Neck ROM: Full Loose/Missing/Broken Teeth: No Heart: RRR Lungs: CTA Assessment and Plan Assessment Anesthesia Assessment: Anesthesia Plan Discussed Final Anesthetic Review NPO: Yes ASA Class: III Final Preanesthetic Review: Meds/Allgs Chart Reviewed, Consent Obtained/Reviewed and Anes Risks/Benef Reviewed Patient Risk: Intermediate Procedure Risk: Intermediate Anesthetic Plan Anesthetic Plan: GA Disposition: Standard PACU
[2024-05-19] VITALS (25 sets, daily range): BP systolic 111–130; BP diastolic 68–89; PULSE 61–101; RESP 14–21; TEMP 36.4–36.7; O2SAT 94–99; BMI 48.3
[2024-05-19 08:47] LABS: UPreg QC Valid YES; Urine Pregnancy NEGATIVE (NEGATIVE)
[2024-05-19] MEDS: Aprepitant 32 MG/4.4 ML VIAL IVPUSH (09:05)
[2024-05-19] MEDS: Lactated Ringers 1,000 ML 999 ML IV (09:06)
--- NOTE | 2024-05-19 09:44 | PHA.MEDREC ---
Addendum entered by Silvio Grubbs 05/19/24 09:46: Reviewed Original Note: Pharmacy Consult ? Medication Reconciliation Pharmacy has reviewed the medication reconciliation.
--- NOTE | 2024-05-19 10:21 | MHC.SHP ---
Pre-Procedural Eval Section A - 24 Hr Update-Section A only Date of Service: 05/19/24 The patient is an INPATIENT: Yes The patient has been examined within 24 hours of the surgical procedure. The History & Physical has been completed within 30 days and I have reviewed it.: Yes Section B - Complete if H&P > 30 days Chief Complaint: Morbid Obesity Relevant Family History (Specify if Yes): No Relevant Social History: None Present Medications: None Medical History: No relevant PMH History of Previous Operations: No relevant previous surgery Allergies: Allergies Allergy/AdvReac Type Severity Reaction Status Date / Time No Known Allergies Allergy Verified 05/19/24 08:40 Review of Systems Sugical H&P ROS: Negative: Constitution, Cardiovascular, Respiratory, Neurological, Psychiatric, Hem-Onc, Allergic/Immunologic, Gastrointestinal, Genitourinary, Musculoskeletal, Integumentary, Endocrine and Eyes/Ears/Nose/Throat Exam Surgical H&P Exam: Normal: HEENT, Normal: Heart, Normal: Lungs, Normal: Extremities, Normal: Abdomen, Normal: Skin and Normal: Neurological Plan Diagnosis/Plan: Unchanged I have reviewed the history and physical and performed a pertinent physical examination on my patient. No changes have occurred unless specified. Time Spent With Patient Time: Total time managing care of this patient today ____ minutes.
--- NOTE | 2024-05-19 10:30 | P.BOP_ITS ---
Brief Operative Note Date of Service: 05/19/24 Pre-op diagnosis: Morbid obesity with comorbidities (see below) Post-op diagnosis: same (& abdominal adhesions) Procedure: INITIAL PATIENT BMI ON PRESENTATION AT OUR OFFICE: 55.3 kg/m2 LAST BMI BEFORE SURGERY: 47.9 kg/m2 COMORBIDITIES: depression, anxiety, DJD, GERD, liver steatosis, cholelithiasis ?The patient presented to the Weight Management Program with significant obesity that was negatively impacting the patient's comorbidities as listed above.? The program is a phased program with a special focus on preoperative medical weight management to promote substantial weight loss and prepare the patients for the second phase of the program: bariatric surgery. The patient participated in an intensive weekly lifestyle ?intervention and exercise program during which the patient ?has lost between the initial office visit and the last preoperative visit 51.2lbs, or 14.14% of initial actual body weight. It was deemed appropriate for the patient to now have bariatric surgery. In light of the current Covid-19 pandemic and the well documented strong association of obesity and increased risk of worse outcomes if infected with Covid-19 (REFERENCES: https://pubmed.ncbi.nlm.nih.gov/86046841/ ,? https://pubmed.ncbi.nlm.nih.gov/77228916/ ), any delay in undergoing bariatric surgery may lead to the patient's worsening health condition and increased?risk of more severe Covid-19 disease if infected. In addition a recent?study from [facility] published in [facility] [employer] on 08/20/2021 ([email or web address]) found that, among patients with obesity, substantial weight loss achieved with surgery was associated with improved outcomes of COVID-19 infection. The findings suggest that obesity can be a modifiable risk factor for the severity of COVID-19 infection. In addition, the patient met the BMI-criteria for bariatric surgery based on the BMI on initial presentation. The patient should not be penalized for achieving such weight loss because ?it is not sustainable long-term without surgical intervention and it was achieved in preparation for bariatric surgery ?under my direction and based on my published research ([email or web address]).[email or web address] and? https://www.soard.org/article/[email or web address](99)84139-X/pdf ) ?that a 10% preoperative weight loss improves long-term weight loss after surgery and reduces perioperative complications.? Insurance carriers such as [facility] have endorsed my recommendations ?and have included in their policies criteria to include a 10% preoperative weight loss requirement. PROCEDURE: Esophago-gastroscopy, laparoscopic lysis of adhesions, laparoscopic sleeve gastrectomy and laparoscopic gastropexy INDICATIONS: This is a 28 year-old female who was electively scheduled for laparoscopic, possibly open sleeve gastrectomy. The risks and complications of the procedure were discussed with the patient in advance, particularly the possibility of ; pulmonary embolism; staple line leak; bleeding; GERD; cardiac, pulmonary, or renal complications; as well as long-term problems such as insufficient weight loss, vitamin deficiency, strictures, or ulcers. The patient understood all the risks, and was in agreement to proceed with surgery. DESCRIPTION OF PROCEDURE: After informed consent was obtained from the patient, the patient was given preoperative antibiotics, and was transferred to the operating room. After successful induction of general anesthesia, pneumatic compression devices were placed on both lower extremities. An upper endoscopy was performed next. The oropharynx and esophagus appeared to be within normal limits. There was no significant diaphragmatic hernia present. The stomach was entered. Then after all fluid and air were suctioned and the stomach was fully decompressed, the scope was withdrawn and secured in the mid esophagus. The patient was then prepped and draped in the usual sterile manner, and abdominal access was established at the right upper quadrant with the Odliia technique. A 12 mm blunt port was inserted, and the abdomen was insufflated with CO2 to a pressure of 15 mmHg. Under direct visualization, additional ports were placed, specifically two 5 mm Versi-step ports to the left upper quadrant, and a 5 mm Versi-Step port to the right upper quadrant. 1% lidocaine plain was used to infiltrate all port sites as well as all fascia defects. There were some adhesion over the right lobe of the liver and under the left lobe of the liver. Those were left intact as they did not interfere with our procedure. Using the EndoClose suture passer device, I placed a #1 Polysorb tie across the falciform ligament in order to retract it up against the abdominal wall and prevent injury of the ligament with our instruments during the procedure. Following that, the patient was placed in a steep reverse Trendelenburg position. An additional 5 mm port was placed to the right flank for the Mediflex retractor that was used to retract the left lobe of the liver. The gastro-esophageal fat pad was opened with the ultrasonic device (Thunderbea t, Olympus) and the anterior esophagus and hiatus were exposed. The angle of His was opened with the ultrasonic device the fundus of the stomach from any diaphragmatic and splenic attachments. I then opened the gastrocolic ligament between the transverse colon and the greater curvature of the stomach with the ultrasonic device to enter the lesser sac and facilitate the ligation of the short gastric vessels. I started at a mid-point along the greater curvature and using the Thunderbeat, all short gastric vessels were divided all the way to the angle of His until the left lachelle was completely dissected at its entirety. I then divided the gastro-colic ligament distally to a distance of about 3-4 cm proximal to the pylorus. There were extensive congenital adhesions between the pancreas and posterior gastric wall. Those were lysed completely with the ultrasonic device. Adhesiolysis took approximately 45 min to complete. The stomach was then divided transversely with one Endo JAILYN-45 purple and four JAILYN-60 articulating purple loads using the SIGNIA stapler and loads. Every effort was made that the gastric sleeve had a tubular shape and an even caliber throughout. Once the sleeve resection was completed, the staple line of the gastric sleeve was reinforced with Hemoclips. The resected stomach was retrieved without difficulty from the Odilia port. A gastropexy was then performed in order to prevent postoperative GERD and partial gastric volvulus. Several interrupted 2.0 Surgidac sutures were placed between the sleeve's staple line and the previously divided greater omentum and gastro-colic ligament using the Endo-Stitch device. ?An upper endoscopy was performed. There was no narrowing at the GE junction. The scope was easily advanced all the way to the pylorus which was clearly visualized. There was no narrowing anywhere and the sleeve's caliber was even throughout. The sleeve's staple line was inspected and there was no evidence of ischemia, bleeding or dehiscence. At that point the gastroscope was withdrawn from the patient?s mouth while we were decompressing the bowel and the stomach from any remaining air. I looked into the lesser sac to see how the sleeve was situating and it was situating well. There was no bleeding from the staple line, spleen, or short gastric vessels. The Mediflex retractor was removed, and the undersurface of the liver was inspected and there was no bleeding. The patient was placed in supine position. I closed the fascial defect of the 12 mm port site with a figure of eight #1 Polysorb suture. Then 30cc Ropivacaine plain with 10 mg of Dexamethasone were used to infiltrate the fascial closure as well as all skin incisions. At this point, the abdomen was deflated, all ports were removed under direct vision, and no bleeding was noted from any of the port sites. The skin incisions were irrigated with saline and were closed with 4-0 absorbable monofilament sutures. Steri-Strips and OpSites were used to cover all incisions. The patient was extubated and was transferred in stable condition to the recovery room for further care. I was present and performed all nguyen parts of the procedure. Mr. Moreira was the lpn medical assistant. There were no residents to assist with this case. Markos Bowen MD, PhD, FACS Surgeon: Pj Bowen MD Anesthesia: GETA, local and other (TAP block) Was an Hand Expansion Envelope Maker used for this Procedure?: No Hand Expansion Envelope Maker: Catarino Moreira Estimated blood loss (mL): 10 IV fluids (mL): 3,000 Urine output (mL): 0 (No Barakat to record output) Pathology: other (Stomach) Condition: stable Disposition: PACU
--- NOTE | 2024-05-19 10:33 | P.PNGS_ITS ---
Subjective Subjective Date of Service: 05/20/24 Interval history: Feels well. Mild incisional pain. She is tolerating phase 1 bariatric diet Physical Exam 2 Vital Signs: Vital Signs: Last Vital Signs Temp 97.6 F 05/19/24 08:50 Pulse 87 05/19/24 08:50 Resp 16 05/19/24 08:50 BP 125/89 05/19/24 08:50 Pulse Ox 97 05/19/24 08:50 O2 Del Method Room Air 05/19/24 08:50 BMI result Body Mass Index 46.8 GI: Inspection: Yes normal to inspection, Yes incision (clean, dry and intact) and Yes obesity Palpation (GI): Soft to palpation Extrem: Right lower extremity: normal to inspection (no calf tenderness) L eft lower extremity: normal to inspection (no calf tenderness) Objective Data Active Medications Albuterol/Ipratropium (Albuterol/Iprat 2.5/0.5mg 3 Ml Ampul.Neb) 3 ml INHALE ONCE PRN PRN Reason: Bronchospasm/wheezing Stop: 05/19/24 15:40 Hydromorphone HCl (Hydromorphone Hcl 0.5 Mg/0.5 Ml Syringe) 0.25 mg IVPUSH Q5M PRN PRN Reason: Pain, Moderate to Severe (Pain Scale 4-10) Stop: 05/19/24 15:40 Lactated Ringer's (Lr) 1,000 mls @ 100 mls/hr IVCONT .Q10H [facility] Lactated Ringer's (Lr) 1,000 mls @ 999 mls/hr IV .Q1H1M [facility] Stop: 05/19/24 10:45 Last Admin: 05/19/24 09:06 Dose: 999 mls/hr Documented By: JOSÉ Naloxone HCl (Naloxone Hcl 0.4 Mg/Ml Vial) 0.04 mg IVPUSH Q5M PRN PRN Reason: Excessive sedation or RR < 8 Ondansetron HCl (Ondansetron Hcl 4 Mg/2 Ml Vial) 4 mg IVPUSH ONCE PRN PRN Reason: Nausea and Vomiting Stop: 05/19/24 15:40 Oxycodone HCl (Oxycodone Hcl Immed Release 5 Mg Tablet) 5 mg PO ONCE PRN PRN Reason: Pain, Moderate(Pain Scale 4-6) if no IV Access Stop: 05/19/24 15:40 Labs 05/19/24 14:17 05/19/24 14:17 Labs: Laboratory Results - last 24 hr 05/12/24 05/19/24 09:50 08:30 Urine Test NEGATIVE Blood Type O Positive Antibody Screen NEGATIVE Procedures Date of Service Date of Service: 05/20/24 Progress Note: A&P Assessment and plan (1) Morbid obesity: Status: Acute Assessment and Plan: s/p laparoscopic sleeve gastrectomy, lysis of adhesions and gastropexy Doing well Will check am labs and if OK the patient will be discharged home (2) Anxiety: Status: Acute (3) Depression: Status: Acute (4) Back pain: Status: Acute (5) Steatosis, liver: Status: Acute (6) Cholelithiasis: Status: Acute (7) GERD (gastroesophageal reflux disease): Status: Acute (8) S/P laparoscopic sleeve gastrectomy: Status: Acute (9) Congenital intra-abdominal adhesions: Status: Acute (10) S/P laparoscopy with lysis of adhesions: Status: Acute Time Spent With Patient Time: Total time managing care of this patient today ____ minutes. Quality Stroke Does the patient have a stroke diagnosis?: No VTE Prior VTE?: No VTE Risk Level:: Surgical - moderate VTE Device Contraindication: N/A - Device Ordered VTE Drug Contraindication: Treatment Not Indicated
[2024-05-19] MEDS: Lactated Ringers 1,000 ML 100 ML IVCONT ×2 (10:34→17:06)
--- NOTE | 2024-05-19 13:45 | PM.DS ---
DS: Providers Provider Date of Service: 05/20/24 Date of admission: 05/19/24 08:32 Primary care physician: Unknown Physician DS: Diagnosis Discharge Diagnosis (1) Morbid obesity: Status: Acute (2) Anxiety: Status: Acute (3) Depression: Status: Acute (4) Back pain: Status: Acute (5) Steatosis, liver: Status: Acute (6) Cholelithiasis: Status: Acute (7) GERD (gastroesophageal reflux disease): Status: Acute (8) S/P laparoscopic sleeve gastrectomy: Status: Acute (9) Congenital intra-abdominal adhesions: Status: Acute (10) S/P laparoscopy with lysis of adhesions: Status: Acute DS: Summary Hospital Course Hospital Course: ADMITTING DIAGNOSIS: morbid obesity, anxiety, depression ? DISCHARGE DIAGNOSIS: same, s/p laparoscopic sleeve gastrectomy ? PAST SURGICAL HISTORY: tonsillectomy, cesarian section ? PROCEDURE: upper endoscopy, laparoscopic sleeve gastrectomy ? DISCHARGE SUMMARY: ? History of Present Illness: ? The patient is a?28 year-old woman with a BMI of?55.3 kg/m2 and associated co-morbidities as described above. The patient had extensive work-up,lost?56.5 lbs preoperatively and was electively scheduled for laparoscopic, possible open sleeve gastrectomy and gastropexy. Risks and complications of the surgery were discussed with the patient in advance, particularly the possibility of , pulmonary embolism, anastomotic leak, bleeding, bowel injury, GERD, cardiac, renal or pulmonary complications. The patient understood all the risks and was in agreement with the surgical plan. ? Hospital Course: ? The patient underwent an uneventful laparoscopic sleeve gastrectomy with gastropexy on the day of admission. Postoperatively, the patient was transferred to the surgical floor. The patient received IV Acetaminophen and IV dilaudid for pain control. Patient was started on bariatric phase 1 diet POD #0. On postoperative day one, the patient was feeling well without nausea, vomiting, fevers, or tachycardia. The patient had some mild incisional pain and the abdomen was soft. ? On the morning of postoperative day one, the patient was continued on 1 ounce of water or ice every half hour. During the day, the patient did fairly well, having some incisional pain, but able to ambulate adequately and to tolerate liquids well. ? Since the patient is doing well, we decided that the patient was ready to be discharged. The patient was given instructions to follow-up with me next week and to call my office for any fever over 101, persistent abdominal pain, nausea, vomiting, GERD, symptoms of DVT such as calf tenderness, or leg swelling, or pulmonary embolism such as chest pain or shortness of breath. The patient was also instructed to drink 40-60 ounces of liquids per day using the 1-ounce cups. The patient had been given prescriptions for Tylenol for pain, Zofran prn for nausea, and pantoprazole and carafate previously. The patient was encouraged to ambulate and use the incentive spirometer. The patient was allowed to shower, but no baths, and encouraged to stay active at home. All of these instructions were given to the patient personally. All questions were answered and the patient understood all instructions, the instructions were also given to the patient in print. Time Attestation Total time managing care of this patient today: 25 mintues. Discharge Coordination Time (in mins): 25 Quality: Safe Use of Opioids Does Pt have an Active Cancer Diagnosis on the Problem List?: No Quality: Stroke Does the patient have a stroke diagnosis?: No Physical Exam Vital Signs: Vital Signs: Last Vital Signs Temp 97.6 F 05/19/24 08:50 Pulse 87 05/19/24 08:50 Resp 16 05/19/24 08:50 BP 125/89 05/19/24 08:50 Pulse Ox 97 05/19/24 08:50 O2 Del Method Room Air 05/19/24 08:50 BMI result Body Mass Index 46.8 DS: Data Data Completed and Pending Pending studies at discharge: Pending at discharge 05/19/24 12:56 Surgical [PTH] Routine Labs on day of discharge: Laboratory Results - last 24 hr 05/12/24 05/19/24 09:50 08:30 Urine Test NEGATIVE Blood Type O Positive Antibody Screen NEGATIVE Discharge Plan Discharge Anticipated Discharge Date/Time: 05/20/24 10:00 Patient Disposition: Home, Self-Care Discharge Diagnosis: s/p laparoscopic sleeve gastrectomy Referrals: Physician,Unknown J [Primary Care Provider] - 1 Week Discharge Medications: Continued pantoprazole 40 mg tablet,delayed release (DR/EC) 40 mg PO DAILY Qty: 90 0RF sucralfate 100 mg/mL suspension 10 ml PO BID Qty: 600 2RF ondansetron 4 mg tablet,disintegrating 4 mg PO Q12H Qty: 20 0RF Rx Instructions: Only take one every 12 hours as needed if you have nausea Discontinued cholecalciferol (vitamin D3) 125 mcg (5,000 unit) capsule 125 mcg PO DAILY Qty: 90 0RF vitamin A palmitate 3,000 mcg (10,000 unit) capsule 10,000 unit PO DAILY Qty: 90 0RF thiamine HCl (vitamin B1) 100 mg tablet 100 mg PO DAILY Qty: 90 0RF omega 7-hyn-mba-fish oil [Fish Oil] 1,200 (144-216) mg capsule 1 cap PO DAILY Discharge Orders: Discharge Order (Routine); Ordered 05/20/24 Ordered By: Pj Bowen Activity on Discharge: No heavy lifting Stand Alone Forms: Patient Portal Discharge page Print Language: Korean Care Plan Goals: weight loss Health Concerns: morbid obesity Plan of Treatment: No tub baths, sex or returning to work until discussed at first post op appointment. No exercise, alcohol, tobacco or illegal drug use. Continue to use incentive spirometer hourly while awake. Walk in home for 5- 10 minutes every 2 hours during the first week. Follow all instructions in the bariatric handbook and call with any questions.Discharge Instructions 1. Please call your doctor or come back to the emergency room should any new symptoms arise. 2. You will receive a courtesy call from [facility] 24-48 hours after discharge. 3. Activity: abstain from alcohol, practice limited stair climbing, no bending, no driving, no exercise, no illicit substances, no lifting, no sex, no tub bath, no work. 4. Diet: continue as discussed with Dr. Bowen. 5. Dressing Change/Wound Care: Your incision is covered by clear bandages and guaze underneath. If the area is tender, you may apply an ice pack for short intervals (no more than 20 minutes on, followed by at least 20 minutes off). Do not apply heat. Do not use creams, lotions, or topical antibiotics unless instructed to do so by your surgeon. These can cause infection or allergic reaction. 6. Call your doctor if: - Your temperature exceeds 101.5 F - You experience excessive pain or swelling - You have an unexpected reaction to medication - You have excessive bleeding - You experience continued vomiting/nausea - Your incision begins to separate - Your incision shows signs of infection such as increased redness, swelling, excessive pain, heat, or drainage (light blood or clear fluid is normal) 7. General instructions: No lifting greater than 5 lbs for 1 week and not more than 20lbs the next 3?weeks. No driving until seen at the office in 5-7 days after surgery. If you do not move your bowels in the next 2 days, please tell?Dr. Bowen. Please walk around your home every hour or two to prevent blood clots from forming in your legs. You do not need to wake from sleeping to walk. Please sleep in a bed or couch to prevent kinking at the hips and knees. Please take your incentive spirometer (your lung animal husbandman) home with you and use it for the next few days to prevent pneumonia. You may shower, no hot tubs, baths or swimming pools.?Please follow the post op diet instructions you are?given by Dr Bowen? and text me daily at 5-6pm for an update.?If you have any issues or concerns or questions please communicate this to him via text.? The Celebrate shakes have all of the bariatric vitamins you need if you consume these shakes. If you are drinking other protein shakes, you will need to purchase the Celebrate multivitamins and calcium that are available in the hospital gift shop on the first floor of the main hospital.??Do not take anything without first discussing with Dr Bowen. Please make sure you are consuming at least 40 ounces of fluids per day starting the?day AFTER your discharge from the hospital. Always drink 1-2 ml per minute using the 5ml?syringe. If you drink faster you may experience?bloating,?gas pain, burping, nausea or heartburn. In that case please slow down your pace and use the syringe to?understand better the?proper?pace and volume of drinking. Do not hesitate to contact the office with any questions at . The patient's medical history has been reviewed and they are considered low risk for post op DVT and therefore DVT prophylaxis is not considered necessary. Travel after surgery was reviewed. The patient has not disclosed any travel plans during the first 30 days after surgery and they have been advised that within the first 30 days after surgery any bus, plane, train or car travel over 2 hours in duration is contraindicated due to the possibility of developing blood clots from immobility. Any travel, needs to include periods of ambulation of 10 minutes in duration every 2 hours.? The patient was instructed to discuss any plans for travel during this period with their bariatric surgeon. Assessment: stable s/p laparoscopic sleeve gastrectomy Discharge Date/Time: 05/20/24 10:17
[2024-05-19] MEDS: HYDROmorphone HCl 0.5 MG/0.5 ML SYRINGE 0.25 MG IVPUSH ×3 (14:09→16:51)
[2024-05-19] MEDS: Haloperidol Lactate 5 MG/ML VIAL 1 MG IM (14:19)
[2024-05-19] MEDS: Scopolamine 1.5 MG PATCH.TD.3 TRANSDERMA (14:22)
[2024-05-19 14:23] LABS: Hematocrit 35.9 % (37.0-47.0); Hemoglobin 12.3 g/dl (12.0-16.0)
[2024-05-19 14:35] LABS: Anion Gap 15 (12-20); Blood Urea Nitrogen 10 mg/dL (9-16); Calcium 9.7 mg/dL (8.4-10.2); Carbon Dioxide 21 mmol/L (22-29); Chloride 106 mmol/L (96-108); Creatinine Clr Calc Pharmacy 143.9; Estimated Glomerular Filt Rate > 60; Glucose Random 125 mg/dL (60-115); Potassium 4.1 mmol/L (3.3-5.1); Sodium 138 mmol/L (135-145)
[2024-05-19] MEDS: ceFAZolin Sodium/Dextrose,Iso 2 GM/50 ML PIGGYBACK IV (17:05)
[2024-05-19] MEDS: Acetaminophen 1,000 MG/100 ML PIGGYBACK 16.7 MG IV ×2 (17:47→22:56)
--- NOTE | 2024-05-19 17:52 | PC.NURSE ---
Pt instructed on phase I diet and use of incentive spirometer
[2024-05-19] MEDS: ondansetron HCL 4 MG/2 ML VIAL IVPUSH (19:13)
[2024-05-19] MEDS: Famotidine/PF 20 MG/2 ML VIAL IVPUSH (19:13)
[2024-05-19] MEDS: 0.9 % Sodium Chloride Flush 3 ML SYRINGE IVFLUSH (19:13)
[2024-05-20] MEDS: Lactated Ringers 1,000 ML 100 ML IVCONT (02:10)
[2024-05-20 04:00] VITALS: BP 113/74; PULSE 56; RESP 16; TEMP 36; O2SAT 93
[2024-05-20] MEDS: Acetaminophen 1,000 MG/100 ML PIGGYBACK 16.7 MG IV (05:00)
[2024-05-20] MEDS: Famotidine/PF 20 MG/2 ML VIAL IVPUSH (06:56)
[2024-05-20 07:35] VITALS: PULSE 96; RESP 16; TEMP 37.1; O2SAT 96
[2024-05-20 07:38] VITALS: BP 105/52; PULSE 57; RESP 16; TEMP 37; O2SAT 97
--- NOTE | 2024-05-20 08:04 | HO.POSTANES ---
Post Anesthesia Evaluation Post Anesthesia Evaluation Date of Service: 05/20/24 Vital Signs: Vital Signs Temp Pulse Resp BP Pulse Ox O2 Del Method 05/20/24 07:38 98.6 F 57 16 105/52 L 97 Room Air 05/20/24 07:35 98.8 F 96 16 96 Room Air 05/20/24 04:00 96.8 F 56 16 113/74 93 Room Air 05/19/24 23:57 97.5 F 61 16 121/68 94 Room Air Anesthesia: General Endotracheal-GETA Mental Status: Awake Pain Control: Satisfactory Nausea/Vomiting: None Hydration: Adequate Anesthesia-Related Issues: No Anes. Related Issues
[2024-05-20 08:33] LABS: MANUAL DIFF FLAG NO
[2024-05-20 08:34] LABS: Basophils Percent Auto 0.1 % (0-2); Hematocrit 36.6 % (37.0-47.0); Hemoglobin 12.7 g/dl (12.0-16.0); Imm Gran Abs Auto 0.06 X10*3/uL (0.00-0.03); Imm Gran Pct Auto 0.4 % (0.0-0.4); Lymphocytes Absolute Auto 1.6 X10*3/uL (1.2-4.9); Lymphocytes Percent Auto 10.3 % (20-40); Mean Corpuscular HGB Conc 34.7 g/dl (31.0-35.0); Mean Corpuscular Hemoglobin 30.8 pg (27.0-33.0); Mean Corpuscular Volume 88.8 fL (80.0-98.0); Mean Platelet Volume 9.4 fL (9.4-12.3); Monocytes Absolute Auto 1.3 X10*3/uL (0.1-1.2); Monocytes Percent Auto 8.1 % (2-11); Neutrophils Absolute Auto 12.7 x10*3/uL (2.0-8.3); Neutrophils Percent Auto 81.1 % (45-73); Platelet Count 283 X10*3/uL (160-400); Red Blood Count 4.12 X10*6/uL (4.20-5.50); Red Cell Distribution Width 12.1 % (11.0-16.0); White Blood Count 15.6 X10*3/uL (4.8-10.8)
[2024-05-20 08:48] LABS: Anion Gap 12 (12-20); Blood Urea Nitrogen 8 mg/dL (9-16); Calcium 9.9 mg/dL (8.4-10.2); Carbon Dioxide 21 mmol/L (22-29); Chloride 109 mmol/L (96-108); Creatinine Clr Calc Pharmacy 155.7; Estimated Glomerular Filt Rate > 60; Glucose Random 125 mg/dL (60-115); Potassium 4.3 mmol/L (3.3-5.1); Sodium 138 mmol/L (135-145)
--- NOTE | 2024-05-20 09:30 | MHC.CM.PN ---
Patient lives in an apartment w/ her two children, 11 & 12 YO. Functionally independent. Denies use of DME or services. PCP @ [facility] No HCP. CM provided education and offered assistance. Patient declined. DP: Medically cleared for dc home self care. Friend to transport. RN aware.
== END 2024-05-20 10:17 | disposition home or self-care (01) | DRG 403 ==
LOC: HO.SSSA 13:48 → HO.S3 17:03
PROVIDERS: Nurse Practitioner; Physician Assistant Surgical; Admitting Provider Surgery; PCP Family Medicine; Visit Provider Surgery
PROC: 0DB64Z3 Excision of Stomach, Percutaneous Endoscopic Approach, Vertical (ICD-10-PCS; CPT 43845; principal; 2024-05-19 10:20)
DX: E66.01 Morbid (severe) obesity due to excess calories (principal); K76.0 Fatty (change of) liver, not elsewhere classified; Q43.3 Congenital malformations of intestinal fixation; K80.20 Calculus of gallbladder without cholecystitis without obstruction; F32.A Depression, unspecified; Z68.42 Body mass index [BMI] 45.0-49.9, adult; F41.9 Anxiety disorder, unspecified; M19.90 Unspecified osteoarthritis, unspecified site; Z87.891 Personal history of nicotine dependence; Z79.899 Other long term (current) drug therapy
CPT/HCPCS: 36415; 80048; 80053; 80061; 81025; 83036; 83525; 84443; 85014; 85018; 85025; 85610; 85730; 86140; 86850; 86900; 86901; 88304; 88305; 88307; 88342; A4649; C9145; J0131; J0690; J1100; J1170; J1630; J2250; J2371; J2405; J2704; J2795; J3010; J7120

== ENCOUNTER → 2024-05-19 08:32 | Outpatient (BNV) | payer MEDICAID, SELFPAY | PROVIDERS: Admitting Provider Surgery; Visit Provider Surgery | DX: E66.01 Morbid (severe) obesity due to excess calories (principal); Z98.84 Bariatric surgery status | CPT/HCPCS: 43659; 43775; 99024; 99499 ==

== ENCOUNTER 2024-05-26 10:13 | Outpatient (AMB) | payer MEDICAID, SELFPAY ==
--- NOTE | 2024-05-26 10:41 | A.OFFVIS_ITS ---
VS Expanded 05/26/24 11:10 BP 124/77 Blood Pressure Location Rt brachial Blood Pressure Position Sitting Pulse 86 Pulse Source Pulse Oximeter Temp 97.7 F Temperature Source Temporal Artery Scan Pulse Oximetry 96 Oxygen Delivery Method Room Air Height 5 ft 8 in Weight 292 lb 12.8 oz BMI 44.5 Body Fat % 35.8 Body Fat Mass 146.6 Fat Free Mass 146.2 Visceral Fat Rating 14.0 Body Water % 35.8 Body Water Mass 105.0 Muscle Mass/Score 138.8 Basal Metabolic Rate/Score 2,135 Intake Visit Reasons: (OV) PO LSG 05/19/24 Allergies No Known Allergies Allergy (Verified 05/26/24 11:14) HPI Comments Details: Patient is a pleasant 28-year-old female status post laparoscopic sleeve gastrectomy on 05/19/2024. She reports tolerating 3 celebrate 4 in 1 shakes with 1 scoop each and 1% milk. She has had a positive bowel movement. Denies any complaints at today's visit. [facility] Medical History (Updated 05/20/24 @ 00:03 by Izabel Kunz) Air hunger Daytime somnolence Pre-op evaluation Anxiety Depression Back pain Surgical History (Updated 05/26/24 @ 11:15 by Anamika Tomlnison CMA) Hx of laparoscopic partial gastrectomy History of esophagogastroduodenoscopy (EGD) History of tonsillectomy Hx of section Family History Mother Depression Anxiety Bipolar 1 disorder Father Hypertension Sleep apnea Depression Son ADHD Daughter No problems noted. 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: Yes Do you presently have visiting nurse or other home services: No Alcohol intake: never Patient Tobacco Use Status: Former Tobacco user Tobacco use type: Cigarette Cigarettes Per Day: 4 Years Smoked: 8 Second Hand Smoke Exposure: No service: No Physical Exam Vital Signs: Last Vital Signs Temp 97.7 F 05/26/24 11:10 Pulse 86 05/26/24 11:10 BP 124/77 05/26/24 11:10 Pulse Ox 96 05/26/24 11:10 Oxygen Delivery Method Room Air 05/26/24 11:10 BMI result Body Mass Index 44.5 GI Inspection: Yes incision (Clean, dry, intact.) Assessment & Plan Assessment & Plan (1) S/P laparoscopic sleeve gastrectomy: Code(s): Z98.84 - Bariatric surgery status Category: Surgical Plan: POD 7 s/p LSG on 05/19/[address] Bowen Weight loss prior to surgery was 56.5 pounds or 15.5 % TBWL. Original weight on 03/01/2024 was 363.8 pounds and op weight was 307.3 pounds. Be sure to text Dr Bowen exactly 1 week after surgery your weight from your home scale so he can adjust your meal plan. Continue meal plan until f/u hemanth Toribio in 2 weeks May shower, no submersion in bath for another week Continue abdominal binder with activity and exercise for the next 2 weeks. Exercise prior to surgery was walking outside and may resume No abdominal exercises for 6 weeks post operatively Will be emailed link to post op video for review Reminded of the pace of drinking, 2 mL per minute, 1 oz/15 min.
[2024-05-26 11:10] VITALS: BP 124/77; PULSE 86; TEMP 36.5; O2SAT 96; BMI 44.5
== END 2024-05-26 15:27 | disposition home or self-care (01) ==
PROVIDERS: Visit Provider Physician Assistant Surgical
DX: Z98.84 Bariatric surgery status (principal)
CPT/HCPCS: 99024

== ENCOUNTER → 2024-05-26 10:13 | Outpatient (BNVA) | payer MEDICAID, SELFPAY | PROVIDERS: Visit Provider Physician Assistant Surgical | DX: Z48.815 Encounter for surgical aftercare following surgery on the digestive system (principal); Z98.84 Bariatric surgery status | CPT/HCPCS: 99212 ==

== ENCOUNTER → 2024-06-09 10:41 | Outpatient (BNVA) | payer MEDICAID, SELFPAY | PROVIDERS: Visit Provider Physician Assistant Surgical ==

== ENCOUNTER → 2024-06-18 12:12 | Outpatient (BNVA) | payer MEDICAID, SELFPAY | PROVIDERS: Visit Provider Physician Assistant Surgical ==

== ENCOUNTER 2024-06-24 12:32 | Outpatient (AMB) | payer MEDICAID, SELFPAY ==
--- NOTE | 2024-06-24 12:51 | MHC.OFFVISWM ---
VS Expanded 06/24/24 13:05 BP 143/75 H Blood Pressure Location Rt brachial Blood Pressure Position Sitting Pulse 92 Pulse Source Pulse Oximeter Temp 97.8 F Temperature Source Temporal Artery Scan Pulse Oximetry 97 Oxygen Delivery Method Room Air Height 5 ft 8 in Weight 280 lb BMI 42.6 Body Fat % 46.0 Body Fat Mass 128.8 Fat Free Mass 151.2 Visceral Fat Rating 12.0 Body Water % 38.8 Body Water Mass 108.6 Muscle Mass/Score 143.8 Basal Metabolic Rate/Score 2,173 Intake Visit Reasons: O/V PO s/p lsg 05/19/24 Allergies No Known Allergies Allergy (Verified 05/26/24 11:14) HPI Comments Details: This?a?28?yo female who is s/p LSG without hiatal hernia repair on?04/29/2024. Presents for 1 month post op visit. Weight today is 280 pounds, with a BMI of 42.6. There has been a 83.8 pound weight loss,(initial weight 363.8 pounds) since starting the program on 03/01/2024 reflecting a 23% total body weight loss and a weight loss of 27.3 pounds since surgery (operative weight 307.3 pounds) reflecting a 8.8% TBWL since surgery. No complaints of nausea, emesis, abdominal pain or reflux. Reports infrequent but normal bowel movements every [] days and uses stool softeners regularly. Pt has had financial insecurity and also transportation problems. She ran out of shake product 2 days ago. She was offered ensure max shakes from the office but was unable to get here until today. She did have an egg and a Kyrgyz yogurt x2 yesterday and the day before. She tolerated that well. She states that she gets paid tomorrow and will be able to afford celebrate rebuild. She is also going to look at [email or web address] regarding the shake products that they have their as this is much closer to her home. I did give her a coupon for Orgain Present meal plan includes: 1 egg sao tomean yogurt x 2 gatorade zero ? Exercise routine includes: walking outside, daily, [address] [facility] Medical History (Updated 05/28/24 @ 00:02 by Background Daemon) Air hunger Daytime somnolence Pre-op evaluation Anxiety Depression Back pain Surgical History (Updated 05/28/24 @ 00:02 by Izabel Kunz) Hx of laparoscopic partial gastrectomy History of esophagogastroduodenoscopy (EGD) History of tonsillectomy Hx of section Family History Mother Depression Anxiety Bipolar 1 disorder Father Hypertension Sleep apnea Depression Son ADHD Daughter No problems noted. 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: Yes Do you presently have visiting nurse or other home services: No Alcohol intake: never Patient Tobacco Use Status: Former Tobacco user Tobacco use type: Cigarette Cigarettes Per Day: 4 Years Smoked: 8 Second Hand Smoke Exposure: No service: No Physical Exam Vital Signs: Last Vital Signs Temp 97.8 F 06/24/24 13:05 Pulse 92 06/24/24 13:05 BP 143/75 H 06/24/24 13:05 Pulse Ox 97 06/24/24 13:05 Oxygen Delivery Method Room Air 06/24/24 13:05 BMI result Body Mass Index 42.6 Const General: healthy appearing and no acute distress Resp Effort & Inspection: normal respiratory effort Auscultation: clear to auscultation bilaterally Cardio Rate: regular rate Rhythm: regular rhythm GI Auscultation: normal bowel sounds Extrem General: Yes normal to inspection Assessment & Plan Assessment & Plan (1) S/P laparoscopic sleeve gastrectomy: Code(s): Z98.84 - Bariatric surgery status Category: Surgical Plan: Patient was given ensure max ready to drink supplements. She should drink 2 per day over a 3 hour. Each. Additionally having a Kyrgyz yogurt and 1 egg. She will do this today and tomorrow at which point she will be able to get celebrate rebuild. She will discuss with Dr. Bowen her meal plan going forward using celebrate rebuild. She will additionally discuss potentially using Or[employer] once she finishes the celebrate rebuild as this is available at [email or web address] and closer to her home. Discussed the importance of communicating by text if there are any problems or if she has any further financial in security or transportation problems preventing her from obtaining shake products or food
[2024-06-24 13:05] VITALS: BP 143/75; PULSE 92; TEMP 36.6; O2SAT 97; BMI 42.6
== END 2024-06-24 13:35 | disposition home or self-care (01) ==
LOC: HO.HBS 12:33
PROVIDERS: Visit Provider Physician Assistant Surgical
DX: Z98.84 Bariatric surgery status (principal)
CPT/HCPCS: 99024

== ENCOUNTER → 2024-06-24 12:32 | Outpatient (BNVA) | payer MEDICAID, SELFPAY | PROVIDERS: Visit Provider Physician Assistant Surgical | DX: Z48.815 Encounter for surgical aftercare following surgery on the digestive system (principal); Z98.84 Bariatric surgery status | CPT/HCPCS: 99212 ==

== ENCOUNTER 2024-07-15 13:30 | Outpatient (AMB) | payer MEDICAID, SELFPAY ==
[2024-07-15 09:14] VITALS: BMI 41.1
--- NOTE | 2024-07-15 09:14 | MHC.OFFVISWM ---
VS Expanded 07/15/24 09:14 Height 5 ft 8 in Weight 270 lb 6 oz BMI 41.1 Body Fat % 52.8 Fat Free Mass 127.6 Visceral Fat Rating 22 Body Water % 32.4 Muscle Mass/Score 120.2 Basal Metabolic Rate/Score 1,604 Intake Visit Reasons: (TV) PO LSG 05/19/24 Skip Hoist Operator Required: No Allergies No Known Allergies Allergy (Verified 05/26/24 11:14) Medication List - Last Reconciled 07/15/24 by ROXANE Jensen ondansetron 4 mg PO Q12H pantoprazole 40 mg PO DAILY sucralfate 10 mL PO BID HPI Comments Details: This?a?28?yo female who is s/p LSG without hiatal hernia repair on?04/29/2024. Presents for 2 month post op visit. Weight today is 270.6 pounds, with a BMI of 41.1. There has been a 93.2 pound weight loss,(initial weight 363.8 pounds) since starting the program on 03/01/2024 reflecting a 25.6% total body weight loss and a weight loss of 36.7 pounds since surgery (operative weight 307.3 pounds) reflecting a 11.9% TBWL since surgery. No complaints of nausea, emesis, abdominal pain or reflux. Reports infrequent but normal bowel movements every 1-2 days and uses stool softeners regularly. Pt has had financial insecurity and also transportation problems. She is not doing the third shake and did not communicate this. Present meal plan includes: Ensure plus 4 oz and 4 oz water x 2, 7-9, 1-3 one rtd ensure plus, 9-11 (not doing, not hungry) Atkins bar x 2, 10-12, 4-6 meal 3 forks protein 1 fork steamed veg, 7 pm Drinking: propel and gatorade zero, 32 oz and 20 oz ? Exercise routine includes: walking outside, daily, 300 [address] [facility] Medical History Air hunger Daytime somnolence Pre-op evaluation Anxiety Depression Back pain Surgical History Hx of laparoscopic partial gastrectomy History of esophagogastroduodenoscopy (EGD) History of tonsillectomy Hx of section Family History Mother Depression Anxiety Bipolar 1 disorder Father Hypertension Sleep apnea Depression Son ADHD Daughter No problems noted. Social History Household Members: Children Household Members Other:: minor children Housing: Apartment Are you a primary customer care representative to a significant other at home: Yes Do you presently have visiting nurse or other home services: No Alcohol intake: never Patient Tobacco Use Status: Former Tobacco user Tobacco use type: Cigarette Cigarettes Per Day: 4 Years Smoked: 8 Second Hand Smoke Exposure: No service: No Telehealth Telehealth Telehealth Platform: Telephone Location of provider rendering services: practice address Location of patient: address on file Patient Identification confirmed using: Name, : Yes Telehealth method: voice only Patient verbally consented to treatment: Yes Patient verbally consented to billing insurance company: Yes Patient informed of any privacy concerns related to visit: Yes Minutes spent on Phone/Video with Pt.: 15 Assessment & Plan Assessment & Plan (1) S/P laparoscopic sleeve gastrectomy: Code(s): Z98.84 - Bariatric surgery status Category: Surgical Plan: Ensure plus at 7-10 atkins bar 10-12 Ensure plus 4 oz and 4 oz water x 1, 1-3 Atkins bar x 2, 4-6 meal 4 forks protein 2 fork steamed veg, 7 pm Encouraged to increase exercise to 350-400 calories per day. Discussed the importance of communication and encouraged to text her weight weekly and with any questions or concerns. Return to clinic 1 month
== END 2024-07-15 13:52 | disposition home or self-care (01) ==
LOC: HO.HBS 13:47
PROVIDERS: Visit Provider Physician Assistant Surgical
DX: Z98.84 Bariatric surgery status (principal)
CPT/HCPCS: 99024

== ENCOUNTER → 2024-07-15 13:30 | Outpatient (BNVA) | payer MEDICAID, SELFPAY | PROVIDERS: Visit Provider Physician Assistant Surgical | DX: Z48.815 Encounter for surgical aftercare following surgery on the digestive system (principal); Z98.84 Bariatric surgery status | CPT/HCPCS: 99212 ==

== ENCOUNTER 2024-09-02 14:00 | Outpatient (AMB) | payer MEDICAID, SELFPAY ==
--- NOTE | 2024-09-02 09:32 | MHC.OFFVISWM ---
VS Expanded 09/02/24 09:33 Height 5 ft 8 in Weight 251 lb 2 oz BMI 38.2 Body Fat % 48.3 Fat Free Mass 129.8 Visceral Fat Rating 19 Body Water % 35.5 Muscle Mass/Score 122 Basal Metabolic Rate/Score 1,640 Intake Visit Reasons: (TV) PO LSG 05/19/24 Manager Competitive Intelligence Required: No Allergies No Known Allergies Allergy (Verified 05/26/24 11:14) Medication List - Last Reconciled 09/02/24 by ROXANE Jensen No Known Home Meds HPI Comments Details: This?a?28?yo female who is s/p LSG without hiatal hernia repair on?04/29/2024. Presents for 3.5 month post op visit. Weight today is 251.2 pounds, with a BMI of 38.2. There has been a 112.6 pound weight loss,(initial weight 363.8 pounds) since starting the program on 03/01/2024 reflecting a 30.9% total body weight loss and a weight loss of 56.1 pounds since surgery (operative weight 307.3 pounds) reflecting a 18.2% TBWL since surgery. No complaints of nausea, emesis, abdominal pain or reflux. Reports infrequent but normal bowel movements every 1-2 days and uses stool softeners regularly. Pt has had financial insecurity and also transportation problems. She states that last month she was constipated but this has resolved. She changed to Premier protein RTD shake without communication. This is what she is doing RTD shake, 8-930 Atkins bar, 1230-130, has it 4 x per week and not on 3 days. Has another shake when she doesn't have the bar meal 4 forks chicken, 2-3 forks veg Drinking 60 oz water Present meal plan includes: Ensure plus at 7-10 atkins bar 10-12 Ensure plus 4 oz and 4 oz water x 1, 1-3 Atkins bar x 2, 4-6 meal 4 forks protein 2 fork steamed veg, 7 pm Drinking: propel and gatorade zero, 32 oz and 20 oz ? Exercise routine includes: walking outside, daily, [address] [facility] Medical History Air hunger Daytime somnolence Pre-op evaluation Anxiety Depression Back pain Surgical History Hx of laparoscopic partial gastrectomy History of esophagogastroduodenoscopy (EGD) History of tonsillectomy Hx of section Family History Mother Depression Anxiety Bipolar 1 disorder Father Hypertension Sleep apnea Depression Son ADHD Daughter No problems noted. Social History Household Members: Children Household Members Other:: minor children Housing: Apartment Are you a primary child care group leader to a significant other at home: Yes Do you presently have visiting nurse or other home services: No Alcohol intake: never Patient Tobacco Use Status: Former Tobacco user Tobacco use type: Cigarette Cigarettes Per Day: 4 Years Smoked: 8 Second Hand Smoke Exposure: No service: No Telehealth Telehealth Telehealth Platform: Telephone Location of provider rendering services: practice address Location of patient: address on file Patient Identification confirmed using: Name, : Yes Telehealth method: voice only Patient verbally consented to treatment: Yes Patient verbally consented to billing insurance company: Yes Patient informed of any privacy concerns related to visit: Yes Minutes spent on Phone/Video with Pt.: 20 Assessment & Plan Assessment & Plan (1) S/P laparoscopic sleeve gastrectomy: Code(s): Z98.84 - Bariatric surgery status Category: Surgical Plan: Discussed multiple issues with the patient today including avoiding changing her meal plan without communicating with the office. Additionally, discussed the importance of increased cardiovascular activity. She does not have a car and does walk outside when the weather is permitting. Discussed exercise videos at home that she could be doing. She does not wish to continue with protein bars. Premier protein ready to drink shake at 8-10, 12-2 Meal with 6 forks protein and 4 forks vegetables Return to the office 1 month.
[2024-09-02 09:33] VITALS: BMI 38.2
== END 2024-09-02 14:28 | disposition home or self-care (01) ==
LOC: HO.HBS 14:08
PROVIDERS: Visit Provider Physician Assistant Surgical
DX: E66.812 Obesity, class 2 (principal); Z68.38 Body mass index [BMI] 38.0-38.9, adult; Z90.3 Acquired absence of stomach [part of]; Z98.84 Bariatric surgery status
CPT/HCPCS: 98967

== ENCOUNTER → 2024-09-02 14:00 | Outpatient (BNVA) | payer MEDICAID, SELFPAY | PROVIDERS: Visit Provider Physician Assistant Surgical ==